=== PATIENT | female | born 1985 | race Caucasian/White ===

== ENCOUNTER 2016-12-31 13:15 | Emergency (ER) | payer BC ==
[2016-12-31] MEDS ORDERED: ONDANSETRON 4 MG TAB.RAPDIS PO ONE (13:44)
[2016-12-31] MEDS ORDERED: ACETAMINOPHEN 325 MG TABLET PO ONE (13:44)
[2016-12-31 14:16] LABS: ABSOLUTE EOSINOPHILS # (AUTO) 0.2 10^3/uL (0.0-0.6); ABSOLUTE LYMPHOCYTES (AUTO) 2.4 10^3/uL (0.5-4.7); ABSOLUTE MONOCYTES (AUTO) 0.9 10^3/uL (0.1-1.4); ABSOLUTE NEUT (AUTO) 6.4 10^3/uL (1.7-8.2); BASOPHILS % (AUTO) 0.3 % (0-2); EOSINOPHILS % (AUTO) 1.7 % (0-6); HEMATOCRIT 35.1 % (36.0-47.0); HEMOGLOBIN 11.7 g/dL (12.0-15.5); LYMPHOCYTES % (AUTO) 23.9 % (13-45); MEAN CORPUSCULAR HEMOGLOBIN 27.4 pg (27.0-33.4); MEAN CORPUSCULAR HGB CONC 33.4 g/dL (32.0-36.0); MEAN CORPUSCULAR VOLUME 82 fl (80-97); MONOCYTES % (AUTO) 9.3 % (3-13); RED BLOOD COUNT 4.28 10^6/uL (3.72-5.28); RED CELL DISTRIBUTION WIDTH 13.3 % (11.5-14.0); SEGMENTED NEUTROPHILS % (AUTO) 64.8 % (42-78); WHITE BLOOD COUNT 9.9 10^3/uL (4.0-10.5)
[2016-12-31 14:34] LABS: ANION GAP 11 (5-19); BLOOD UREA NITROGEN 12 mg/dL (7-20); CALCIUM 9.3 mg/dL (8.4-10.2); CARBON DIOXIDE 26 mmol/L (22-30); CHLORIDE 106 mmol/L (98-107); CREATININE RESULT 0.59 mg/dL (0.52-1.25); GLUCOSE 97 mg/dL (75-110); POTASSIUM 4.2 mmol/L (3.6-5.0); SODIUM 143.1 mmol/L (137-145)
[2016-12-31 14:46] LABS: APPEARANCE,URINE CLEAR; BILIRUBIN,URINE NEGATIVE (NEGATIVE); GLUCOSE, URINE NEGATIVE (NEGATIVE); KETONES,URINE NEGATIVE (NEGATIVE); LEUKOCYTE ESTERASE,URINE NEGATIVE (NEGATIVE); NITRITE,URINE NEGATIVE (NEGATIVE); PROTEIN,URINE NEGATIVE (NEGATIVE); URINE SPECIFIC GRAVITY 1.003; UROBILINOGEN,URINE NEGATIVE mg/dL (<2.0)
[2016-12-31 15:28] VITALS: BP 106/46
--- NOTE | 2016-12-31 15:29 | ER Document Report ---
ED General - General Chief Complaint: Flank Pain Stated Complaint: BACK PAIN TRAVEL OUTSIDE OF THE [place] IN LAST 30 DAYS: No - HPI Patient complains to provider of: bilateral flank pain back pain Notes: Patient coming in with a three-day history of bilateral flank pain back pain states he has a history kidney stones that she passed kidney stones recently. Patient denies fevers chills nausea vomiting. Upon my evaluation patient is in no obvious distress resting - Related Data Allergies/Adverse Reactions: colgate toothpaste Allergy (Uncoded 12/31/16 13:29) crest toothpaste Allergy (Uncoded 12/31/16 13:29) Past Medical History - Social History Smoking Status: Never Smoker Frequency of alcohol use: Occasional Drug Abuse: None Family History: Arthritis, CAD, CVA, Hyperlipidemia, Hypertension, Malignancy, Thyroid Disfunction Patient has suicidal ideation: No Patient has homicidal ideation: No - Past Medical History Cardiac Medical History: Reports: Hx Heart Murmur Pulmonary Medical History: Reports: Hx Bronchitis, Hx Pneumonia Renal/ Medical History: Denies: Hx Peritoneal Dialysis Musculoskeltal Medical History: Reports Hx Musculoskeletal Trauma Psychiatric Medical History: Reports: Hx Anxiety Traumatic Medical History: Reports: Hx Fractures - Left index finger Surgical Hx: Negative - Immunizations Hx Diphtheria, Pertussis, Tetanus Vaccination: Yes Review of Systems - Review of Systems Constitutional: No symptoms reported EENT: No symptoms reported Cardiovascular: No symptoms reported Respiratory: No symptoms reported Gastrointestinal: No symptoms reported Genitourinary: Flank pain - Bilateral flank pain Female Genitourinary: No symptoms reported Musculoskeletal: No symptoms reported Skin: No symptoms reported Hematologic/Lymphatic: No symptoms reported Neurological/Psychological: No symptoms reported Physical Exam - Vital signs Vitals: Temp Pulse Resp BP Pulse Ox 97.4 F 78 16 108/64 100 12/31/16 13:28 12/31/16 13:28 12/31/16 13:28 12/31/16 13:28 12/31/16 13:28 Interpretation: Normal - General General appearance: Appears well, Alert - HEENT Head: Normocephalic, Atraumatic Eyes: Normal Pupils: PERRL - Respiratory Respiratory status: No respiratory distress Chest status: Nontender Breath sounds: Normal Chest palpation: Normal - Cardiovascular Rhythm: Regular Heart sounds: Normal auscultation Murmur: No - Abdominal Inspection: Normal Distension: No distension Bowel sounds: Normal Tenderness: Nontender Organomegaly: No organomegaly - Back Back: Normal, Nontender - Extremities General upper extremity: Normal inspection, Nontender, Normal color, Normal ROM , Normal temperature General lower extremity: Normal inspection, Nontender, Normal color, Normal ROM , Normal temperature, Normal weight bearing. No: Christine's sign - Neurological Neuro grossly intact: Yes Cognition: Normal Orientation: AAOx4 [place] Coma Scale Eye Opening: Spontaneous [place] Coma Scale Verbal: Oriented [place] Coma Scale Motor: Obeys Commands [place] Coma Scale Total: 15 Speech: Normal Motor strength normal: LUE, RUE, LLE, RLE Sensory: Normal - Psychological Associated symptoms: Normal affect, Normal mood - Skin Skin Temperature: Warm Skin Moisture: Dry Skin Color: Normal Course - Re-evaluation Re-evalutation: 12/31/16 20:41 CAT scan lab reveal any kidney stones. Urinalysis not show any signs of infection patient is not . Review the CAT scan personally does shows some retained fecal material. Possible mild to moderate constipation. Patient will be given stool softener patient will be discharged home. - Vital Signs Vital signs: Temp Pulse Resp BP Pulse Ox 98.1 F 81 18 106/46 L 100 12/31/16 15:27 12/31/16 15:27 12/31/16 15:27 12/31/16 15:27 12/31/16 15:27 - Laboratory Result Diagrams: 12/31/16 13:45 12/31/16 13:45 Laboratory results interpreted by me: 12/31/16 13:45 Hgb 11.7 L Hct 35.1 L Discharge - Discharge Clinical Impression: Flank pain Condition: Good Disposition: HOME, SELF-CARE Instructions: Abdominal Pain ([facility]), Constipation ([facility]) Additional Instructions: Your lab work and your CT scan today shows no critical etiology no infections there is no signs of kidney stones on your CT scan. There is some signs of some mild to moderate constipation I would highly recommend taking a stool softener. He may take Tylenol and Motrin for pain. may also try to take Bentyl for pain. Return to the ER symptoms worsen. Prescriptions: Dicyclomine HCl [Bentyl 20 mg Tablet] 20 mg PO QID #20 tablet Docusate Sodium [Colace 100 mg Capsule] 100 mg PO DAILY #14 capsule Forms: Return to Work
== END 2016-12-31 15:31 | disposition home or self-care (01) ==
LOC: ER 13:15
DX: R10.9 Unspecified abdominal pain (principal); M54.9 Dorsalgia, unspecified
CPT/HCPCS: 99284; 36415; 84703; 85025; 80048; 81001; 76380; S0119

== ENCOUNTER 2017-03-07 21:59 | Emergency (ER) | payer BC ==
[2017-03-08] MEDS ORDERED: HYDROCODONE/ACETAMINOPHEN 5-325 MG 6 TAB/DSPK PO PRN (02:06)
[2017-03-08] MEDS ORDERED: METHYLPREDNISOLONE INJ 125 MG/2 ML SDV IM ONE (02:06)
--- NOTE | 2017-03-08 02:11 | ER Document Report ---
HPI - HPI Patient complains to provider of: left forearm pain Pain Level: Denies Context: Patient is a 32-year-old female with a history of lupus that comes emergency department for chief complaint of a tender area on her right forearm which hurts with movement and started developing this evening. There is a slight redness to the area. She states that she is on Plaquenil, she states her plaster die maker wants her to be on prednisone but she does not like the side effects. She denies fever, she denies specific injury, she denies any other symptoms. - CONSTITUTIONAL Constitutional: DENIES: Fever, Chills - EENT EENT: DENIES: Sore Throat, Ear Pain, Nasal Drainage-Clear, Nasal Drainage- Purulent, Congestion, Eye problems - NEURO Neurology: DENIES: Headache, Weakness, Vision blurred, Dizzinesss / Vertigo - CARDIOVASCULAR Cardiovascular: DENIES: Chest pain - RESPIRATORY Respiratory: DENIES: Trouble Breathing, Coughing - GASTROINTESTINAL Gastrointestinal: DENIES: Abdominal Pain, Nausea, Patient vomiting, Diarrhea, Constipation, Black / Bloody Stools - URINARY Urinary: DENIES: Dysuria, Urgency, Frequency - REPRODUCTIVE LMP: 03/06/17 Reproductive: DENIES: :, Postmenopausal - MUSCULOSKELETAL Musculoskeletal: REPORTS: Extremity pain. DENIES: Back Pain, Neck Pain, Swelling - DERM Skin Color: Normal, [place] Skin Problems: None - NURSING COMMENTS Comment: Pt presents with c/o a red line going up arm. Onset today. Has a raised red line from wrist going up toward elbow. C/O burning. Hx of Lupus. A/O , lying on stretcher. NAD. Past Medical History - General Information source: Patient - Social History Smoking Status: Never Smoker Drug Abuse: None Lives with: Family Family History: Arthritis, CAD, CVA, Hyperlipidemia, Hypertension, Malignancy, Thyroid Disfunction Patient has suicidal ideation: No Patient has homicidal ideation: No - Past Medical History Cardiac Medical History: Reports: Hx Heart Murmur Pulmonary Medical History: Reports: Hx Bronchitis, Hx Pneumonia Renal/ Medical History: Denies: Hx Peritoneal Dialysis Musculoskeltal Medical History: Reports Hx Musculoskeletal Trauma Psychiatric Medical History: Reports: Hx Anxiety Traumatic Medical History: Reports: Hx Fractures - Left index finger - Immunizations Hx Diphtheria, Pertussis, Tetanus Vaccination: Yes Vertical Provider Document - CONSTITUTIONAL General Appearance: WD/WN, No Apparent Distress - INFECTION CONTROL TRAVEL OUTSIDE OF THE [place] IN LAST 30 DAYS: No - HEENT HEENT: Atraumatic, Normocephalic - RESPIRATORY Respiratory: Breath Sounds Normal, No Respiratory Distress O2 Sat by Pulse Oximetry: 97 - CARDIOVASCULAR Cardiovascular: Regular Rate, Regular Rhythm - GI/ABDOMEN Gastrointestinal: Abdomen Soft, Abdomen Non-Tender - BACK Back: Normal Inspection - MUSCULOSKELETAL/EXTREMETIES Musculoskeletal/Extremeties: Tender - Patient has tenderness over the left wrist generally, there is a slightly inflamed appearing tendon of the distal forearm over the flexor surface, this is easily palpable and slightly tender, slightly erythematous, significantly warm to the touch. Normal strength, normal distal neurovascular exam, normal range of motion of the wrist, elbow, shoulder. Course - Re-evaluation Re-evalutation: There is specific pain and tenderness over the tendon of the left forearm. This is easily visualized because patient is very skinny. There is no abnormal heat to the area, there is no evidence of injury, bite, or other abnormality. No evidence of phlebitis or cellulitis. Appears to be inflamed connective tissue as opposed to infection. Patient will be given a dose of Solu-Medrol, placed on prednisone which she was already recommended to take by her plaster die maker, advised her to follow-up closely with her plaster die maker, instructed her to return if she has any spreading redness, fever, or any other concerning or worsening symptoms. Patient states satisfaction in agreement with this plan. - Vital Signs Vital signs: Temp Pulse Resp BP Pulse Ox 98.2 F 76 16 121/66 97 03/07/17 22:15 03/07/17 22:15 03/07/17 22:15 03/07/17 22:15 03/07/17 22:15 Procedures - Immobilization Left wrist Pre-Proc Neuro Vasc Exam: Normal Immobilizer type: Cock-up Performed by: RN Post-Proc Neuro Vasc Exam: Normal Alignment checked and good: Yes Discharge - Discharge Clinical Impression: Left forearm pain Condition: Stable Disposition: HOME, SELF-CARE Additional Instructions: Examination is consistent with musculoskeletal inflammation consistent with lupus flare. He has been given Solu-Medrol, I recommended prednisone taper over the prednisone dose prescribed by her plaster die maker. Rest, consider ice to the area, follow-up with your provider. Return to emergency department for any concerning or worsening symptoms including swelling, worsening redness, fever, or any other concerning symptoms. Prescriptions: Prednisone [Deltasone 10 mg Tablet] 10 mg PO ASDIR PRN #21 tablet PRN Reason: Forms: Return to Work, Treatment of Relative/Child Referrals: ADOLPH RDZ MD [Primary Care Provider] - Follow up as needed
[2017-03-08 02:39] VITALS: BP 122/77
== END 2017-03-08 02:39 | disposition home or self-care (01) ==
LOC: ER 21:59
DX: M79.632 Pain in left forearm (principal); R30.0 Dysuria
CPT/HCPCS: 99283; 96372; L3984; J2930

== ENCOUNTER 2017-06-12 20:26 | Emergency (ER) | payer BC ==
[2017-06-12] MEDS ORDERED: NORMAL SALINE 1000 ML 1,000 ML IV PRN (21:54)
[2017-06-12] MEDS ORDERED: ONDANSETRON HCL INJ/PF 4 MG/2 ML SDV IV ONE (21:54)
[2017-06-12 22:16] LABS: ABSOLUTE BASOPHILS # (AUTO) 0.1 10^3/uL (0.0-0.2); ABSOLUTE EOSINOPHILS # (AUTO) 0.1 10^3/uL (0.0-0.6); ABSOLUTE LYMPHOCYTES (AUTO) 3.5 10^3/uL (0.5-4.7); ABSOLUTE MONOCYTES (AUTO) 1.1 10^3/uL (0.1-1.4); ABSOLUTE NEUT (AUTO) 6.7 10^3/uL (1.7-8.2); BASOPHILS % (AUTO) 0.6 % (0-2); EOSINOPHILS % (AUTO) 1.1 % (0-6); HEMATOCRIT 38.2 % (36.0-47.0); HEMOGLOBIN 13.1 g/dL (12.0-15.5); HGB HCT DIFFERENCE 1.1; LYMPHOCYTES % (AUTO) 30.6 % (13-45); MEAN CORPUSCULAR HEMOGLOBIN 28.4 pg (27.0-33.4); MEAN CORPUSCULAR HGB CONC 34.3 g/dL (32.0-36.0); MEAN CORPUSCULAR VOLUME 83 fl (80-97); MONOCYTES % (AUTO) 9.6 % (3-13); RED BLOOD COUNT 4.62 10^6/uL (3.72-5.28); RED CELL DISTRIBUTION WIDTH 13.4 % (11.5-14.0); SEGMENTED NEUTROPHILS % (AUTO) 58.1 % (42-78); WHITE BLOOD COUNT 11.5 10^3/uL (4.0-10.5)
[2017-06-12] MEDS: MORPHINE SULFATE 10 MG/ML INJ IV PRN ×2 (22:17→23:32)
[2017-06-12 22:38] LABS: ALANINE AMINOTRANSFERASE 21 U/L (9-52); ALBUMIN 4.5 g/dL (3.5-5.0); ALKALINE PHOSPHATASE 65 U/L (38-126); ANION GAP 12 (5-19); ASPARTATE AMINO TRANSFERASE 27 U/L (14-36); BILIRUBIN,DIRECT 0.4 mg/dL (0.0-0.4); BILIRUBIN,TOTAL 0.5 mg/dL (0.2-1.3); BLOOD UREA NITROGEN 11 mg/dL (7-20); CALCIUM 10.1 mg/dL (8.4-10.2); CARBON DIOXIDE 23 mmol/L (22-30); CHLORIDE 105 mmol/L (98-107); CREATININE RESULT 0.58 mg/dL (0.52-1.25); GLUCOSE 87 mg/dL (75-110); LIPASE 149.8 U/L (23-300); SODIUM 140.1 mmol/L (137-145); TOTAL PROTEIN 7.6 g/dL (6.3-8.2)
--- NOTE | 2017-06-12 23:00 | ER Document Report ---
ED General - General Chief Complaint: Chest Pain Stated Complaint: CHEST PAIN AND SHORTNESS OF BREATH Time Seen by Provider: 06/12/17 21:42 Mode of Arrival: Ambulatory Information source: Patient Notes: This is a 32-year-old female with a history of lupus who presents to the emergency room with chest pain. Patient states the pain started yesterday and is gotten worse. Patient's only medicine is Plaquenil. She denies fever, chills, nausea or vomiting. It has hurt with positional changes and palpation. TRAVEL OUTSIDE OF THE [place] IN LAST 30 DAYS: No - HPI Onset: Last week Onset/Duration: Gradual Quality of pain: Dull Severity: Moderate Pain Level: Denies Associated symptoms: None. denies: Chest pain, Fever Exacerbated by: Denies Relieved by: Denies Similar symptoms previously: No Recently seen / treated by doctor: No - Related Data Allergies/Adverse Reactions: colgate toothpaste Allergy (Uncoded 06/12/17 21:43) crest toothpaste Allergy (Uncoded 06/12/17 21:43) Past Medical History - General Information source: Patient - Social History Smoking Status: Never Smoker Cigarette use (# per day): No Chew tobacco use (# tins/day): No Frequency of alcohol use: Occasional Drug Abuse: None Lives with: Family Family History: Arthritis, CAD, CVA, Hyperlipidemia, Hypertension, Malignancy, Thyroid Disfunction Patient has suicidal ideation: No Patient has homicidal ideation: No - Past Medical History Cardiac Medical History: Reports: Hx Heart Murmur Pulmonary Medical History: Reports: Hx Bronchitis, Hx Pneumonia Renal/ Medical History: Denies: Hx Peritoneal Dialysis Musculoskeltal Medical History: Reports Hx Musculoskeletal Trauma Psychiatric Medical History: Reports: Hx Anxiety Traumatic Medical History: Reports: Hx Fractures - Left index finger Surgical Hx: Negative - Immunizations Hx Diphtheria, Pertussis, Tetanus Vaccination: Yes Review of Systems - Review of Systems Constitutional: denies: Chills, Fever EENT: No symptoms reported Cardiovascular: No symptoms reported Respiratory: No symptoms reported Gastrointestinal: No symptoms reported Genitourinary: No symptoms reported Female Genitourinary: No symptoms reported Musculoskeletal: See HPI Skin: No symptoms reported Hematologic/Lymphatic: No symptoms reported Neurological/Psychological: No symptoms reported Physical Exam - Vital signs Vitals: Temp Pulse Resp BP Pulse Ox 97.6 F 86 18 109/67 99 09/18/17 21:05 06/12/17 21:05 06/12/17 21:05 06/12/17 21:05 06/12/17 21:05 Notes: Physical exam: GENERAL: 32-year-old female, alert and oriented 3, no acute distress. HEAD: Atraumatic, normocephalic. EYES: Pupils equal round and reactive to light, extraocular movements intact, sclera anicteric, conjunctiva are normal. ENT: TMs normal, nares patent, oropharynx clear without exudates. Moist mucous membranes. NECK: Normal range of motion, supple without obvious mass or JVD. LUNGS: Breath sounds clear to auscultation bilaterally and equal. No wheezes rales or rhonchi. HEART: Regular rate and rhythm without murmurs, rubs or gallops. ABDOMEN: Soft, normoactive bowel sounds. No tenderness to palpation. No guarding, no rebound. No masses appreciated. EXTREMITIES: Normal range of motion, no pitting or edema. No clubbing or cyanosis. NEUROLOGICAL: Cranial nerves II through XII grossly intact. Normal speech, moving all extremities. PSYCH: Normal mood, normal affect. SKIN: Warm, Dry, normal turgor, no rashes or lesions noted. Course - Vital Signs Vital signs: Temp Pulse Resp BP Pulse Ox 97.6 F 86 18 112/80 100 06/12/17 21:05 06/12/17 21:05 06/13/17 00:01 06/13/17 00:01 06/13/17 00:01 - Laboratory Result Diagrams: 06/12/17 22:00 06/12/17 22:00 Laboratory results interpreted by me: 06/12/17 22:00 WBC 11.5 H - Diagnostic Test Radiology reviewed: Image reviewed, Reports reviewed - CTA of the chest shows no pulmonary emboli - EKG Interpretation by Me Rate: Normal Rhythm: NSR - EKG shows normal sinus rhythm with a ventricular rate of 84, no acute ST-T wave changes. Discharge - Discharge Clinical Impression: Chest wall pain Condition: Stable Disposition: HOME, SELF-CARE Instructions: Chest Wall Pain ([facility]) Additional Instructions: Thank you for choosing [facility] for your care. The examination and treatment you have received in the Emergency Department today has been rendered on an emergency basis only and is not intended to be a substitute for complete medical care. You should contact your follow-up physician as it is important that he or she examine you for any new or remaining problems. If given a copy of any lab tests or radiology reports, please bring them with you when you see your physician. If your problem worsens or new symptoms appear and you are unable to arrange prompt follow-up care, return to the Emergency Department. Specific signs to look out for: Worsening pain, shortness of breath or any concerns or getting worse. Any other instructions: Follow up with your primary care physician in the next week. Bring a copy of today's lab work and CT report with you when you go to that appointment. Take Percocet for pain. Take the Zofran for nausea. The pain medicine you're taking prescribed as a narcotic. There are several important things you should know about this medicine: 1. This medicine contains Tylenol: It is important that you do not take Tylenol (or acetaminophen) while on this medicine. Tylenol is metabolized by the liver and taking too much Tylenol (acetaminophen) can lay to liver damage and even liver failure. 2. Taking narcotics for too long can lead to physical and mental dependence. Take this medicine only if really needed and in the lowest quantity to achieve pain relief. 3. Do not drink alcohol while on this medicine. Alcohol interacts with narcotics and the combination can be dangerous. 4. Do not drive or operate machinery while on this medicine. 5. Narcotics do cause constipation, so drink plenty of fluids and daily stool softeners. Prescriptions: Ondansetron HCl [Zofran 4 mg Tablet] 1 - 2 tab PO Q4H PRN #10 tablet PRN Reason: Oxycodone HCl/Acetaminophen [Percocet 5-325 mg Tablet] 1 - 2 tab PO ASDIR PRN # 15 tablet PRN Reason: Referrals: SHUBHAM KWOK MD [Primary Care Provider] - Follow up as needed
--- NOTE | 2017-06-12 23:39 | RADIOLOGY REPORT (SQ) ---
EXAM DESCRIPTION: CTA CHEST COMPLETED DATE/TIME: 06/12/2017 11:15 pm REASON FOR STUDY: chest pain COMPARISON: None. TECHNIQUE: CT scan of the chest performed using helical scanning technique with dynamic intravenous contrast injection. Images reviewed with lung, soft tissue and bone windows. Reconstructed coronal and sagittal MPR images reviewed. Additional 3 dimensional post-processing performed to develop Maximal Intensity Projection images (OR P). All images stored on PACS. All CT scanners at this facility use dose modulation, iterative reconstruction, and/or weight based d osing when appropriate to reduce radiation dose to as low as reasonably achievable (ALARA). [facility]: Dose Right [facility]: CareDose [facility]: Dose Right [facility]: Teradose 4D [facility]: Touch Payments CONTRAST TYPE AND DOSE: contrast/concentration: Isovue 370.00 mg/ml; Total Contrast Delivered: 100.0 ml; Total Saline Delivered: 45.0 ml Contrast bolus optimized for the pulmonary arteries. Not diagnostic for the aorta. RENAL FUNCTION: None required. The patient is less than 50 years old. RADIATION DOSE: Up-to-date CT equipment and radiation dose reduction techniques were employed. CTDIv ol: 13.2 - 14.3 mGy. DLP: 478 mGy-cm. . LIMITATIONS: None. FINDINGS: LUNGS AND PLEURA: No masses, infiltrates, pneumothorax. No pleural effusions, calcificati ons. AORTA AND GREAT VESSELS: No aneurysm. Contrast bolus not optimized for the aorta. HEART: No pericardial effusion. No significant coronary artery calcifications. PULMONARY ARTERIES: No emboli visualized in the main pulmonary arteries or the segmental branches. HILAR AND MEDIASTINAL STRUCTURES: No identified masses or abnormal nodes. HARDWARE: None in the chest. UPPER ABDOMEN: No significant findings. Limited exam. THYROID AND OTHER SOFT TISSUES: No masses. No adenopathy. BONES: No acute or significant finding. 3D MIPS: Confirm above findings. OTHER: No other significant finding. IMPRESSION: NORMAL CTA OF THE CHEST. NO PULMONARY EMBOLI. COMMENT: Quality ID # [id number]: Final reports with documentation of one or more dose reduction techniques (e.g., Automated exposure control, adjustment of the mA and/or kV according to patient size, use of iterative reconstruction technique) TECHNICAL DOCUMENTATION: JOB ID: [id number]- All Rights Reserved
[2017-06-13 00:15] LABS: CREATINE KINASE MB 0.34 ng/mL (<4.55)
[2017-06-13 00:16] LABS: TROPONIN I < 0.012 ng/mL
[2017-06-13] MEDS: MORPHINE SULFATE 10 MG/ML INJ IV PRN (01:05)
[2017-06-13] MEDS ORDERED: ONDANSETRON ODT 4 MG TAB (6 TAB/DSPK) PO PRN (01:40)
[2017-06-13 01:52] VITALS: BP 102/64
--- NOTE | 2017-06-13 07:56 | EKG REPORT ---
SEVERITY:- NORMAL ECG - SINUS RHYTHM : Confirmed by: Juan Van MD 13-Jun-2017 07:54:48
== END 2017-06-13 02:05 | disposition home or self-care (01) ==
LOC: ER 20:26
DX: R07.89 Other chest pain (principal); R06.02 Shortness of breath; Z79.899 Other long term (current) drug therapy; Z91.048 Other nonmedicinal substance allergy status
CPT/HCPCS: 93005; 96376; 99285; 96361; 96374; 96375; 36415; 82553; 82550; 83690; 85025; 80053; 84484; 71275; 93010; J2270 ×2; J2405; J7030

== ENCOUNTER 2017-07-24 16:11 | Emergency (ER) | payer BC ==
[2017-07-24 16:42] VITALS: BP 114/53
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
--- NOTE | 2017-07-24 17:29 | RADIOLOGY REPORT (SQ) ---
EXAM DESCRIPTION: FOOT LEFT COMPLETE COMPLETED DATE/TIME: 07/24/2017 5:18 pm REASON FOR STUDY: pain COMPARISON: None. NUMBER OF VIEWS: Three views. TECHNIQUE: AP, lateral and oblique radiographic images acquired of the left foot. LIMITATIONS: None. FINDINGS: MINERALIZATION: Normal. BONES: No acute fracture or dislocation. No worrisome bone lesions. JOINTS: No effusions. SOFT TISSUES: No soft tissue swelling. No foreign body. OTHER: No other significant finding. IMPRESSION: NEGATIVE STUDY OF THE LEFT FOOT. NO RADIOGRAPHIC EVIDENCE OF ACUTE INJURY. TECHNICAL DOCUMENTATION: JOB ID: [id number] [employer]- All Rights Reserved
[2017-07-24] MEDS ORDERED: NAPROXEN 250 MG TABLET PO ONE (17:42)
== END 2017-07-24 17:53 | disposition home or self-care (01) ==
LOC: ER 16:11
DX: S90.32XA Contusion of left foot, initial encounter (principal); M79.672 Pain in left foot; W20.8XXA Other cause of strike by thrown, projected or falling object, initial encounter
CPT/HCPCS: 99283

== ENCOUNTER 2017-10-22 20:40 | Emergency (ER) | payer BC ==
[2017-10-22] MEDS ORDERED: NORMAL SALINE 1000 ML 1,000 ML IV ONE (21:23)
[2017-10-22] MEDS ORDERED: ONDANSETRON HCL INJ/PF 4 MG/2 ML SDV IV ONE (21:23)
[2017-10-22] MEDS ORDERED: OXYCODONE-ACETAMINOPHEN 5-325 MG TABLET PO ONE (21:24)
--- NOTE | 2017-10-22 21:25 | ER Document Report ---
ED General - General Chief Complaint: Abdominal Pain Stated Complaint: ABDOMINAL PAIN, FLANK PAIN Time Seen by Provider: 10/22/17 21:04 Mode of Arrival: Ambulatory Information source: Patient Notes: Patient presents with 3 day history of epigastric tenderness. Patient states epigastric pain is worse after eating. Patient states she has had bilateral flank pain for the past 4 days. Patient does report nausea but denies any vomiting or diarrhea. Patient denies any fever or urinary symptoms. TRAVEL OUTSIDE OF THE [place] IN LAST 30 DAYS: No - HPI Onset: Just prior to arrival - 3 days Onset/Duration: Persistent Quality of pain: Achy Pain Level: 5 Associated symptoms: Nausea. 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 Lives with: Family Family History: Arthritis, CAD, CVA, Hyperlipidemia, Hypertension, Malignancy, Thyroid Disfunction Patient has suicidal ideation: No Patient has homicidal ideation: No - Medical History Medical History: Other - Lupus - Past Medical History Cardiac Medical History: Reports: Hx Heart Murmur Pulmonary Medical History: Reports: Hx Bronchitis, Hx Pneumonia Renal/ Medical History: Denies: Hx Peritoneal Dialysis Musculoskeltal Medical History: Reports Hx Musculoskeletal Trauma Psychiatric Medical History: Reports: Hx Anxiety, Hx Depression Traumatic Medical History: Reports: Hx Fractures - Left index finger Surgical Hx: Negative - Immunizations Hx Diphtheria, Pertussis, Tetanus Vaccination: Yes Review of Systems - Review of Systems Constitutional: No symptoms reported. denies: Fever, Recent illness EENT: No symptoms reported Cardiovascular: No symptoms reported. denies: Chest pain Respiratory: No symptoms reported. denies: Cough, Short of breath Gastrointestinal: Abdominal pain, Nausea. denies: Diarrhea, Vomiting Genitourinary: Flank pain. denies: Dysuria Female Genitourinary: No symptoms reported Musculoskeletal: Back pain Skin: No symptoms reported Hematologic/Lymphatic: No symptoms reported Neurological/Psychological: No symptoms reported Physical Exam - Vital signs Vitals: Temp Pulse Resp BP Pulse Ox 97.9 F 83 16 104/65 97 10/22/17 20:46 10/22/17 20:46 10/22/17 20:46 10/22/17 20:46 10/22/17 20:46 - General General appearance: Appears well, Alert In distress: None - HEENT Head: Normocephalic, Atraumatic Eyes: Normal Conjunctiva: Normal Nasal: Normal Mouth/Lips: Normal Mucous membranes: Normal Pharynx: Normal, Tonsillar hypertrophy. No: Erythema, Exudate, Peritonsillar abscess Neck: Normal, Supple. No: Lymphadenopathy - Respiratory Respiratory status: No respiratory distress Chest status: Nontender Breath sounds: Normal. No: Rales, Rhonchi, Stridor, Wheezing Chest palpation: Normal - Cardiovascular Rhythm: Regular Heart sounds: S1 appreciated, S2 appreciated Murmur: No - Abdominal Inspection: Normal Distension: No distension Bowel sounds: Normal Tenderness: Tender - epig Organomegaly: No organomegaly - Back Back: Tender - Patient with lumbar paraspinal tenderness, CVA tenderness - bilat - Extremities General upper extremity: Normal inspection, Normal strength General lower extremity: Normal inspection, Normal strength - Neurological Neuro grossly intact: Yes Cognition: Normal Meagan Coma Scale Eye Opening: Spontaneous Meagan Coma Scale Verbal: Oriented [place] Coma Scale Motor: Obeys Commands Meagan Coma Scale Total: 15 - Psychological Associated symptoms: Normal affect, Normal mood - Skin Skin Temperature: Warm Skin Moisture: Dry Skin Color: Normal Course - Re-evaluation Re-evalutation: 10/22/17 23:15 Patient states that epigastric tenderness is better although not completely resolved. Patient states that pain medicine helped her low back pain but it is starting to return. 10/22/17 23:53 Controlled substance database reviewed. Patient with bilateral flank tenderness , consistent with musculoskeletal back pain. No concern for UTI or pyelonephritis at this time. Patient with epigastric tenderness concerning for likely gastritis at this time. No concern for cholecystitis or choledocholithiasis. - Vital Signs Vital signs: Temp Pulse Resp BP Pulse Ox 98.2 F 73 18 119/73 99 10/22/17 23:52 10/22/17 23:52 10/22/17 23:52 10/22/17 23:52 10/22/17 23:52 - Laboratory Result Diagrams: 10/22/17 21:55 10/22/17 21:55 Laboratory results interpreted by me: 10/22/17 21:55 WBC 12.2 H Labs- Entire Visit 10/22/17 10/22/17 10/22/17 21:40 21:55 21:55 WBC 12.2 H RBC 4.70 Hgb 12.8 Hct 39.2 MCV 83 MCH 27.3 MCHC 32.8 RDW 13.6 Plt Count 283 Seg Neutrophils % 64.5 Lymphocytes % 23.6 Monocytes % 10.0 Eosinophils % 1.5 Basophils % 0.4 Absolute Neutrophils 7.9 Absolute Lymphocytes 2.9 Absolute Monocytes 1.2 Absolute Eosinophils 0.2 Absolute Basophils 0.0 Sodium 140.8 Potassium 3.8 Chloride 103 Carbon Dioxide 29 Anion Gap 9 BUN 11 Creatinine 0.59 Est GFR ( Amer) > 60 Est GFR (Non-Af Amer) > 60 Glucose 80 Calcium 9.9 Total Bilirubin 0.2 Direct Bilirubin 0.2 Neonat Total Bilirubin Not Reportable Neonat Direct Bilirubin Not Reportable Neonat Indirect Bili Not Reportable AST 26 ALT 16 Alkaline Phosphatase 64 Total Protein 7.5 Albumin 4.4 Lipase 139.0 Serum HCG, Qual Urine Color YELLOW Urine Appearance CLEAR Urine pH 6.0 Ur Specific [place] 1.005 Urine Protein NEGATIVE Urine Glucose (UA) NEGATIVE Urine Ketones NEGATIVE Urine Blood NEGATIVE Urine Nitrite NEGATIVE Urine Bilirubin NEGATIVE Urine Urobilinogen NEGATIVE Ur Leukocyte Esterase NEGATIVE Urine WBC (Auto) 1 Urine Bacteria (Auto) TRACE Squamous Epi Cells Auto 1 Urine Mucus (Auto) RARE Urine Ascorbic Acid NEGATIVE 10/22/17 21:55 WBC RBC Hgb Hct MCV MCH MCHC RDW Plt Count Seg Neutrophils % Lymphocytes % Monocytes % Eosinophils % Basophils % Absolute Neutrophils Absolute Lymphocytes Absolute Monocytes Absolute Eosinophils Absolute Basophils Sodium Potassium Chloride Carbon Dioxide Anion Gap BUN Creatinine Est GFR ( Amer) Est GFR (Non-Af Amer) Glucose Calcium Total Bilirubin Direct Bilirubin Neonat Total Bilirubin Neonat Direct Bilirubin Neonat Indirect Bili AST ALT Alkaline Phosphatase Total Protein Albumin Lipase Serum HCG, Qual NEGATIVE Urine Color Urine Appearance Urine pH Ur Specific [place] Urine Protein Urine Glucose (UA) Urine Ketones Urine Blood Urine Nitrite Urine Bilirubin Urine Urobilinogen Ur Leukocyte Esterase Urine WBC (Auto) Urine Bacteria (Auto) Squamous Epi Cells Auto Urine Mucus (Auto) Urine Ascorbic Acid - Diagnostic Test Radiology reviewed: Reports reviewed Discharge - Discharge Clinical Impression: Epigastric pain, Flank pain Condition: Stable Disposition: HOME, SELF-CARE Instructions: Abdominal Pain ([facility]), Flank Pain ([facility]) Additional Instructions: Return immediately for any new or worsening symptoms Followup with your primary care provider, call tomorrow to make a followup appointment Follow-up with a training facilitator for further evaluation, call Monday for an appointment. Prescriptions: Cyclobenzaprine HCl [Flexeril 10 Mg Tablet] 10 mg PO TID #15 tablet Omeprazole Magnesium [Prilosec Otc] 20 mg PO DAILY #15 tablet. Sucralfate [Carafate 1 gm Tablet] 1 gm PO ACHS #40 tablet Forms: Return to Work Referrals: SHUBHAM KWOK MD [Primary Care Provider] - Follow up tomorrow MAYELIN TREJO MD [ACTIVE STAFF] - Follow up as needed GOLDIE GARCIA MD [ACTIVE STAFF] - Follow up as needed
[2017-10-22 21:56] LABS: APPEARANCE,URINE CLEAR; BILIRUBIN,URINE NEGATIVE (NEGATIVE); COLOR,URINE YELLOW; GLUCOSE, URINE NEGATIVE (NEGATIVE); KETONES,URINE NEGATIVE (NEGATIVE); LEUKOCYTE ESTERASE,URINE NEGATIVE (NEGATIVE); NITRITE,URINE NEGATIVE (NEGATIVE); PROTEIN,URINE NEGATIVE (NEGATIVE); URINE SPECIFIC GRAVITY 1.005; UROBILINOGEN,URINE NEGATIVE mg/dL (<2.0)
--- NOTE | 2017-10-22 22:06 | RADIOLOGY REPORT (SQ) ---
EXAM DESCRIPTION: U/S ABDOMEN LIMITED W/O DOP COMPLETED DATE/TIME: 10/22/2017 9:56 pm REASON FOR STUDY: epig pain, upper back/flank pain COMPARISON: None. TECHNIQUE: Dynamic and static grayscale images acquired of the abdomen and recorded on PACS. Additio nal selected color Doppler and spectral images recorded. LIMITATIONS: None. FINDINGS: PANCREAS: No masses. Visualized pancreatic duct normal caliber. LIVER: No masses. Echotexture normal. LIVER VASCULATURE: Normal directional flow of the main portal vein and hepatic veins. GALLBLADDER: Decompressed. No stones. Normal wall thickness. No pericholecystic fluid. ULTRASOUND-DETECTED STAHL'S SIGN: Negative. INTRAHEPATIC DUCTS AND COMMON DUCT: CBD and intrahepatic ducts normal caliber. No filling defects. INFERIOR VENA CAVA: Normal flow. AORTA: No aneurysm. RIGHT KIDNEY: Normal size. Normal echogenicity. No solid or suspicious masses. No hydronephrosis. No calcifications. PERITONEAL AND RIGHT PLEURAL SPACE: No ascites or effusions. OTHER: No other significant findings. IMPRESSION: Decompressed gallbladder. No stones. TECHNICAL DOCUMENTATION: JOB ID: [id number] [place]-72 2010 [employer]- All Rights Reserved
[2017-10-22 22:20] LABS: ABSOLUTE EOSINOPHILS # (AUTO) 0.2 10^3/uL (0.0-0.6); ABSOLUTE LYMPHOCYTES (AUTO) 2.9 10^3/uL (0.5-4.7); ABSOLUTE MONOCYTES (AUTO) 1.2 10^3/uL (0.1-1.4); ABSOLUTE NEUT (AUTO) 7.9 10^3/uL (1.7-8.2); BASOPHILS % (AUTO) 0.4 % (0-2); EOSINOPHILS % (AUTO) 1.5 % (0-6); HEMATOCRIT 39.2 % (36.0-47.0); HEMOGLOBIN 12.8 g/dL (12.0-15.5); LYMPHOCYTES % (AUTO) 23.6 % (13-45); MEAN CORPUSCULAR HEMOGLOBIN 27.3 pg (27.0-33.4); MEAN CORPUSCULAR HGB CONC 32.8 g/dL (32.0-36.0); MEAN CORPUSCULAR VOLUME 83 fl (80-97); PLATELET COUNT 283 10^3/uL (150-450); RED CELL DISTRIBUTION WIDTH 13.6 % (11.5-14.0); SEGMENTED NEUTROPHILS % (AUTO) 64.5 % (42-78); TOTAL CELLS COUNTED % (AUTO) 100 %; WHITE BLOOD COUNT 12.2 10^3/uL (4.0-10.5)
[2017-10-22 22:24] LABS: ALANINE AMINOTRANSFERASE 16 U/L (9-52); ALBUMIN 4.4 g/dL (3.5-5.0); ALKALINE PHOSPHATASE 64 U/L (38-126); ANION GAP 9 (5-19); ASPARTATE AMINO TRANSFERASE 26 U/L (14-36); BILIRUBIN,DIRECT 0.2 mg/dL (0.0-0.4); BILIRUBIN,TOTAL 0.2 mg/dL (0.2-1.3); BLOOD UREA NITROGEN 11 mg/dL (7-20); CALCIUM 9.9 mg/dL (8.4-10.2); CARBON DIOXIDE 29 mmol/L (22-30); CHLORIDE 103 mmol/L (98-107); GLUCOSE 80 mg/dL (75-110); POTASSIUM 3.8 mmol/L (3.6-5.0); SODIUM 140.8 mmol/L (137-145); TOTAL PROTEIN 7.5 g/dL (6.3-8.2)
[2017-10-22] MEDS ORDERED: MAG HYDROX/AL HYDROX/SIMETH SUSP 30 ML UDCUP PO ONE (23:34)
[2017-10-22] MEDS ORDERED: LIDOCAINE 2% VISCOUS SOLN 20 ML UDCUP PO ONE (23:34)
[2017-10-22 23:53] VITALS: BP 119/73
[2017-10-22] MEDS ORDERED: HYDROCODONE/ACETAMINOPHEN 5-325 MG (6 TAB/ER DISP) PO PRN (23:55)
== END 2017-10-23 00:15 | disposition home or self-care (01) ==
LOC: ER 20:40
DX: R10.13 Epigastric pain (principal); R11.0 Nausea
CPT/HCPCS: 99284; 36415; 83690; 84703; 85025; 80053; 81001; 76705; J3490; J2405; J7030

== ENCOUNTER 2017-11-15 20:02 | Emergency (ER) | payer BC ==
[2017-11-15] MEDS ORDERED: NORMAL SALINE 1000 ML 2,000 ML IV ONE (22:26)
[2017-11-15] MEDS ORDERED: ONDANSETRON 4 MG TAB.RAPDIS PO ONE (22:26)
--- NOTE | 2017-11-15 22:29 | ER Document Report ---
ED Medical Screen (RME) - General Chief Complaint: Nausea/Vomiting Stated Complaint: VOMITING Time Seen by Provider: 11/15/17 22:26 Mode of Arrival: Ambulatory Information source: Patient Notes: 32 yo female with nausea and vomiting, without diarrhea today. Woke up with it. vomited more than 12 times. NO fever or chills. Generalized abd. pain but most epigastric, which started after the vomiting. No abd. surgeries. LMP 3 weeks ago , denies . Pale and looks dry. Occasional ETOH, none recently. TRAVEL OUTSIDE OF THE [place] IN LAST 30 DAYS: No - Related Data Allergies/Adverse Reactions: colgate toothpaste Allergy (Uncoded 10/22/17 20:40) crest toothpaste Allergy (Uncoded 10/22/17 20:40) Past Medical History - Past Medical History Cardiac Medical History: Reports: Hx Heart Murmur Pulmonary Medical History: Reports: Hx Bronchitis, Hx Pneumonia Renal/ Medical History: Denies: Hx Peritoneal Dialysis Musculoskeltal Medical History: Reports Hx Musculoskeletal Trauma Psychiatric Medical History: Reports: Hx Anxiety, Hx Depression Traumatic Medical History: Reports: Hx Fractures - Left index finger - Immunizations Hx Diphtheria, Pertussis, Tetanus Vaccination: Yes Physical Exam - Vital signs Vitals: Temp Pulse Resp BP Pulse Ox 97.3 F 110 H 20 131/76 H 100 11/15/17 20:31 11/15/17 20:31 11/15/17 20:31 11/15/17 20:31 11/15/17 20:31 Course - Vital Signs Vital signs: Temp Pulse Resp BP Pulse Ox 97.3 F 110 H 20 131/76 H 100 11/15/17 20:31 11/15/17 20:31 11/15/17 20:31 11/15/17 20:31 11/15/17 20:31
[2017-11-15 23:21] LABS: ABSOLUTE BASOPHILS # (AUTO) 0.1 10^3/uL (0.0-0.2); ABSOLUTE LYMPHOCYTES (AUTO) 1.4 10^3/uL (0.5-4.7); ABSOLUTE NEUT (AUTO) 15.8 10^3/uL (1.7-8.2); BASOPHILS % (AUTO) 0.3 % (0-2); HEMATOCRIT 38.9 % (36.0-47.0); HEMOGLOBIN 12.9 g/dL (12.0-15.5); LYMPHOCYTES % (AUTO) 7.7 % (13-45); MEAN CORPUSCULAR HEMOGLOBIN 27.3 pg (27.0-33.4); MEAN CORPUSCULAR HGB CONC 33.1 g/dL (32.0-36.0); MEAN CORPUSCULAR VOLUME 82 fl (80-97); MONOCYTES % (AUTO) 5.5 % (3-13); PLATELET COUNT 390 10^3/uL (150-450); RED BLOOD COUNT 4.72 10^6/uL (3.72-5.28); SEGMENTED NEUTROPHILS % (AUTO) 86.5 % (42-78); TOTAL CELLS COUNTED % (AUTO) 100 %; WHITE BLOOD COUNT 18.3 10^3/uL (4.0-10.5)
[2017-11-15 23:39] LABS: ALANINE AMINOTRANSFERASE 24 U/L (9-52); ALBUMIN 4.9 g/dL (3.5-5.0); ALKALINE PHOSPHATASE 94 U/L (38-126); ANION GAP 16 (5-19); ASPARTATE AMINO TRANSFERASE 30 U/L (14-36); BILIRUBIN,DIRECT 0.1 mg/dL (0.0-0.4); BILIRUBIN,TOTAL 0.6 mg/dL (0.2-1.3); BLOOD UREA NITROGEN 18 mg/dL (7-20); CALCIUM 10.2 mg/dL (8.4-10.2); CARBON DIOXIDE 24 mmol/L (22-30); CHLORIDE 103 mmol/L (98-107); GLUCOSE 88 mg/dL (75-110); LIPASE 60.7 U/L (23-300); POTASSIUM 4.2 mmol/L (3.6-5.0); SODIUM 143.4 mmol/L (137-145)
[2017-11-16 00:08] LABS: APPEARANCE,URINE SLIGHTLY-CLOUDY; BILIRUBIN,URINE NEGATIVE (NEGATIVE); COLOR,URINE YELLOW; GLUCOSE, URINE NEGATIVE (NEGATIVE); KETONES,URINE 20 mg/dL (NEGATIVE); LEUKOCYTE ESTERASE,URINE NEGATIVE (NEGATIVE); NITRITE,URINE NEGATIVE (NEGATIVE); PROTEIN,URINE 100 mg/dL (NEGATIVE); URINE SPECIFIC GRAVITY 1.025; UROBILINOGEN,URINE NEGATIVE mg/dL (<2.0)
[2017-11-16] MEDS ORDERED: METOCLOPRAMIDE HCL INJ/PF 10 MG/2 ML SDV IV ONE (01:17)
[2017-11-16] MEDS ORDERED: ONDANSETRON ODT 4 MG TAB (6 TAB/ER DISP) PO PRN (02:04)
--- NOTE | 2017-11-16 02:04 | ER Document Report ---
ED GI/ - General Mode of Arrival: Ambulatory Information source: Patient TRAVEL OUTSIDE OF THE [place] IN LAST 30 DAYS: No <SAE FRANCO - Last Filed: 11/16/17 05:08> <RAMYA GARG - Last Filed: 11/16/17 05:25> - General Chief Complaint: Nausea/Vomiting Stated Complaint: VOMITING Time Seen by Provider: 11/15/17 22:26 Notes: Patient is a 32-year-old female that presents to the emergency department today with complaints of abdominal pain with associated nausea and vomiting. Patient was seen here on 10/22/2017 for the same complaint, at that time the patient had a negative gallbladder ultrasound. Patient never followed up since this visit. Patient states at that time her pain was there all the time however it was exacerbated with food. Patient states she has not eaten today. Patient states her abdominal pain is somewhat diffuse but worse on the right side. Patient states she was given "pink pills" during her 10/22 visit which did help her pain. Patient denies any abdominal surgeries. Patient states her nausea is much better after getting medication in triage however her abdominal pain still remains. (SAE FRANCO) - Related Data Allergies/Adverse Reactions: colgate toothpaste Allergy (Uncoded 10/22/17 20:40) crest toothpaste Allergy (Uncoded 10/22/17 20:40) Past Medical History - General Information source: Patient - Social History Smoking Status: Unknown if Ever Smoked Cigarette use (# per day): No Frequency of alcohol use: None Drug Abuse: None Lives with: Family Family History: Arthritis, CAD, CVA, Hyperlipidemia, Hypertension, Malignancy, Thyroid Disfunction Patient has suicidal ideation: No Patient has homicidal ideation: No - Past Medical History Cardiac Medical History: Reports: Hx Heart Murmur Pulmonary Medical History: Reports: Hx Bronchitis, Hx Pneumonia Musculoskeltal Medical History: Reports Hx Musculoskeletal Trauma Psychiatric Medical History: Reports: Hx Anxiety, Hx Depression Traumatic Medical History: Reports: Hx Fractures - Left index finger Surgical Hx: Negative - Immunizations Hx Diphtheria, Pertussis, Tetanus Vaccination: Yes <SAE FRANCO - Last Filed: 11/16/17 05:08> Review of Systems - Review of Systems Constitutional: No symptoms reported EENT: No symptoms reported Cardiovascular: No symptoms reported Respiratory: No symptoms reported Gastrointestinal: See HPI, Abdominal pain, Nausea, Vomiting Genitourinary: No symptoms reported Female Genitourinary: No symptoms reported Musculoskeletal: No symptoms reported Skin: No symptoms reported Hematologic/Lymphatic: No symptoms reported Neurological/Psychological: No symptoms reported -: Yes All other systems reviewed and negative <SAE FRANCO - Last Filed: 11/16/17 05:08> Physical Exam <SAE FRANCO - Last Filed: 11/16/17 05:08> <RAMYA GARG - Last Filed: 11/16/17 05:25> - Vital signs Vitals: Temp Pulse Resp BP Pulse Ox 97.3 F 110 H 20 131/76 H 100 11/15/17 20:31 11/15/17 20:31 11/15/17 20:31 11/15/17 20:31 11/15/17 20:31 - Notes Notes: Physical Exam: General: Alert, appears uncomfortable. HEENT: Normocephalic. Atraumatic. PERRL. Extraocular movements intact. Oropharynx clear. Dry mucous membranes. Neck: Supple. Non-tender. Respiratory: No respiratory distress. Clear and equal breath sounds bilaterally. Cardiovascular: Regular rate and rhythm. Abdominal: Epigastric tenderness with palpation, no guarding or rebound. No distension. Normal Bowel Sounds. Back: Non-tender. No deformity or step off. Extremities: Moves all four extremities. Upper extremities: Normal inspection. Normal ROM. Lower extremities: Normal inspection. No edema. Normal ROM. Neurological: Normal cognition. AAOx4. Normal speech. Psychological: Normal affect. Normal Mood. Skin: Warm. Dry. Normal color. (SAE FRANCO) Course - Laboratory Result Diagrams: 11/15/17 22:50 11/15/17 22:50 <SAE FRANCO - Last Filed: 11/16/17 05:08> - Laboratory Result Diagrams: 11/15/17 22:50 11/15/17 22:50 <RAMYA GARG - Last Filed: 11/16/17 05:25> - Re-evaluation Re-evalutation: 11/16/17 03:05 Patient reports pain and nausea completely resolved. Ready to be discharged. (SAE FRANCO) Patient is a 32-year-old female who comes in with nausea and vomiting. Patient also with epigastric pain. Patient was seen for something similar a few weeks ago. She is not sure what she was discharged with. 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 Patient has had complete resolution with pain after GI cocktail. Abdomen is soft and nontender. Blood work is consistent with dehydration. Patient is to follow-up with her primary doctor and gastroenterology. Return if any worsening or concerning symptoms. She will be discharged home with omeprazole and Carafate. She is to obtain ranitidine or famotidine [id number]. Understands and agrees with plan. Avoid greasy and spicy foods. Return if any further concerns. Stable for discharge. ( RAMYA GARG) - Vital Signs Vital signs: Temp Pulse Resp BP Pulse Ox 98.3 F 90 20 135/75 H 100 11/16/17 03:15 11/16/17 03:15 11/16/17 03:15 11/16/17 03:15 11/16/17 03:15 - Laboratory Laboratory results interpreted by me: 11/15/17 11/15/17 22:50 23:20 WBC 18.3 H Seg Neutrophils % 86.5 H Lymphocytes % 7.7 L Absolute Neutrophils 15.8 H Urine Protein 100 H Urine Ketones 20 H Discharge <SAE FRANCO - Last Filed: 11/16/17 05:08> <RAMYA GARG - Last Filed: 11/16/17 05:25> - Discharge Clinical Impression: Dehydration Vomiting Qualifiers: Vomiting type: unspecified Vomiting Intractability: unspecified Nausea presence : with nausea Qualified Code(s): R11.2 - Nausea with vomiting, unspecified Condition: Stable Disposition: HOME, SELF-CARE Instructions: Dehydration ([facility]), Vomiting ([facility]) Prescriptions: Metoclopramide HCl [Reglan 10 mg Tablet] 1 tab PO TIDP PRN #25 tablet PRN Reason: Omeprazole 20 mg PO DAILY #30 capsule. Sucralfate [Carafate 1 gm Tablet] 1 gm PO ACHS #120 tablet Forms: Return to Work Referrals: SHELDON JOHNSON NP [Primary Care Provider] - Follow up in 3-5 days MAYELIN TREJO MD [ACTIVE STAFF] - Follow up in 1 week Scribe Attestation: 11/16/17 05:25 I personally performed the services described in the documentation, reviewed and edited the documentation which was dictated to the scribe in my presence, and it accurately records my words and actions. (RAMYA GARG) Scribe Documentation - Scribe Written by Scribe:: Niko Boss, 11/16/2017 [id number] acting as scribe for :: Yaima <SAE FRANCO - Last Filed: 11/16/17 05:08>
[2017-11-16] MEDS ORDERED: MAG HYDROX/AL HYDROX/SIMETH SUSP 30 ML UDCUP PO ONE (02:19)
[2017-11-16] MEDS ORDERED: SUCRALFATE 1 GM TABLET PO ONE (02:19)
[2017-11-16] MEDS ORDERED: FAMOTIDINE 20 MG TABLET PO ONE (02:19)
[2017-11-16 03:17] VITALS: BP 135/75
== END 2017-11-16 03:11 | disposition home or self-care (01) ==
LOC: ER 20:02
DX: R11.2 Nausea with vomiting, unspecified (principal); E86.0 Dehydration; R10.84 Generalized abdominal pain; R10.816 Epigastric abdominal tenderness; Z91.048 Other nonmedicinal substance allergy status
CPT/HCPCS: 99283; 96361; 96374; 36415; 87086; 83690; 84703; 85025; 80053; 81001; S0119; J2765; J7030

== ENCOUNTER → 2017-12-14 | Outpatient (CLI) | payer BC ==
--- NOTE | 2017-12-14 15:36 | RADIOLOGY REPORT (SQ) ---
EXAM DESCRIPTION: NM HIDA SCAN WITH CCK COMPLETED DATE/TIME: 12/14/2017 2:37 pm REASON FOR STUDY: N/V (R11.2) R11.2 NAUSEA WITH VOMITING, UNSPECIFIED COMPARISON: None. RADIONUCLIDE AND DOSE: DOSAGE RADIONUCLIDE: 5.7 millicuries Tc99m Mebrofenin. DOSAGE CCK: 0.9 micrograms. DOSAGE MORPHINE: Not required. The route of agent administration: Intravenous TECHNIQUE: Serial imaging right upper quadrant up to 60 minutes following injection of radionuclide. CCK injected after gallbladder visualized. LIMITATIONS: None. FINDINGS: LIVER: Normal visualization without areas of photopenia. INTRAHEPATIC BILE DUCTS: Normal size and no delay in visualization. COMMON BILE DUCT: Normal without dilatation. GALLBLADDER: Normal visualization. Calculated ejection fraction of 87%. Normal range is greater th an 35%. PHYSICAL RESPONSE: Patients presenting complaint was reproduced. OTHER: No other significant finding. IMPRESSION: Normal HIDA. Normal ejection fraction. Patient was symptomatic. TECHNICAL DOCUMENTATION: JOB ID: [id number] [employer]- All Rights Reserved Reading location - IP/workstation name: [email or web address]
== END ==
LOC: RAD 12:21
PROVIDERS: ATTEND Internal Medicine Gastroenterology
DX: R11.2 Nausea with vomiting, unspecified (principal)
CPT/HCPCS: 78227; J2805; A9537; Q9969

== ENCOUNTER 2017-12-18 08:48 | Day surgery (SDC) | payer BC ==
[~2017-12-18 08:48] MED LIST: PROPOFOL INJ 200 MG/20 ML VIAL IV ONE
[2017-12-18 11:15] VITALS: BP 104/63
--- NOTE | 2017-12-18 13:19 | Operative Report ---
Operative Report DATE OF SURGERY: 12/18/17 Operative Report: The risks benefits and alternatives of the procedure explained to the patient in detail and informed consent is obtained.A GIF Olympus video scope was inserted into the patient's mouth and hypopharynx, the esophagus is identified intubated and insufflated, the scope was then advanced through the esophagus stomach and duodenum, retroflexion maneuver is done, the esophagus stomach and first and second portions of the duodenum examined PREOPERATIVE DIAGNOSIS: Epigastric pain POSTOPERATIVE DIAGNOSIS: Gastritis status post biopsy rule out Helicobacter pylori OPERATION: EGD with biopsy SURGEON: SHEMAR RODRIGUEZ ANESTHESIA: LMAC TISSUE REMOVED OR ALTERED: Gastritis status post biopsy rule out Helicobacter pylori COMPLICATIONS: None. ESTIMATED BLOOD LOSS: None. INTRAOPERATIVE FINDINGS: As noted above. PROCEDURE: Patient tolerated procedure well. No immediate postprocedure complications are noted. Patient discharged in good condition. Discharge date 12/18/2017. Discharge diet: Regular. Discharge activity: Regular. 2-3 week follow-up to discuss findings. Patient is instructed call the office or proceed to the emergency room should there be any further problems or questions. We will wait on pathology.
== END 2017-12-18 11:15 | disposition home or self-care (01) ==
LOC: END 08:48
PROVIDERS: ATTEND Internal Medicine Gastroenterology
DX: K29.70 Gastritis, unspecified, without bleeding (principal); K21.9 Gastro-esophageal reflux disease without esophagitis; R01.1 Cardiac murmur, unspecified; Z79.899 Other long term (current) drug therapy; Z87.891 Personal history of nicotine dependence
CPT/HCPCS: 43239; 731; J2704

== ENCOUNTER → 2018-01-25 | Outpatient (CLI) | payer BC ==
[2018-01-25 14:25] LABS: HEMATOCRIT 37.1 % (36.0-47.0); HEMOGLOBIN 12.5 g/dL (12.0-15.5); MEAN CORPUSCULAR HEMOGLOBIN 27.3 pg (27.0-33.4); MEAN CORPUSCULAR HGB CONC 33.6 g/dL (32.0-36.0); MEAN CORPUSCULAR VOLUME 81 fl (80-97); PLATELET COUNT 250 10^3/uL (150-450); RED BLOOD COUNT 4.56 10^6/uL (3.72-5.28); RED CELL DISTRIBUTION WIDTH 13.5 % (11.5-14.0); WHITE BLOOD COUNT 8.3 10^3/uL (4.0-10.5)
[2018-01-25 14:44] LABS: ANION GAP 7 (5-19); BLOOD UREA NITROGEN 12 mg/dL (7-20); CALCIUM 9.4 mg/dL (8.4-10.2); CARBON DIOXIDE 28 mmol/L (22-30); CHLORIDE 107 mmol/L (98-107); GLUCOSE 85 mg/dL (75-110); POTASSIUM 4.3 mmol/L (3.6-5.0)
== END ==
LOC: LAB 14:03
PROVIDERS: ATTEND Surgery
DX: Z01.89 Encounter for other specified special examinations (principal)
CPT/HCPCS: 36415; 80048; 85027

== ENCOUNTER 2018-06-02 22:41 | Emergency (ER) | payer BC ==
[2018-06-02 23:58] LABS: ABSOLUTE BASOPHILS # (AUTO) 0.1 10^3/uL (0.0-0.2); ABSOLUTE EOSINOPHILS # (AUTO) 0.2 10^3/uL (0.0-0.6); ABSOLUTE LYMPHOCYTES (AUTO) 3.6 10^3/uL (0.5-4.7); ABSOLUTE MONOCYTES (AUTO) 1.2 10^3/uL (0.1-1.4); ABSOLUTE NEUT (AUTO) 5.3 10^3/uL (1.7-8.2); BASOPHILS % (AUTO) 0.5 % (0-2); EOSINOPHILS % (AUTO) 1.5 % (0-6); HEMOGLOBIN 12.6 g/dL (12.0-15.5); LYMPHOCYTES % (AUTO) 34.5 % (13-45); MEAN CORPUSCULAR HEMOGLOBIN 28.3 pg (27.0-33.4); MEAN CORPUSCULAR HGB CONC 34.1 g/dL (32.0-36.0); MEAN CORPUSCULAR VOLUME 83 fl (80-97); MONOCYTES % (AUTO) 11.8 % (3-13); PLATELET COUNT 234 10^3/uL (150-450); RED BLOOD COUNT 4.46 10^6/uL (3.72-5.28); SEGMENTED NEUTROPHILS % (AUTO) 51.7 % (42-78); TOTAL CELLS COUNTED % (AUTO) 100 %; WHITE BLOOD COUNT 10.3 10^3/uL (4.0-10.5)
--- NOTE | 2018-06-03 00:38 | RADIOLOGY REPORT (SQ) ---
EXAM DESCRIPTION: CLINICAL HISTORY: 33 years Female chest pain COMPLETED DATE/TME: 06/02/2018 23:37 COMPARISON: 01/10/2018 FINDINGS: The cardiomediastinal silhouette appears unremarkable. No consolidating infiltrates or pleural effusions. No pneumothorax. IMPRESSION: No acute abnormality is identified.
[2018-06-03 00:43] LABS: ALANINE AMINOTRANSFERASE 19 U/L (9-52); ALKALINE PHOSPHATASE 50 U/L (38-126); ANION GAP 7 (5-19); ASPARTATE AMINO TRANSFERASE 23 U/L (14-36); BILIRUBIN,DIRECT 0.2 mg/dL (0.0-0.4); BILIRUBIN,TOTAL 0.3 mg/dL (0.2-1.3); BLOOD UREA NITROGEN 15 mg/dL (7-20); CALCIUM 9.3 mg/dL (8.4-10.2); CARBON DIOXIDE 25 mmol/L (22-30); CHLORIDE 108 mmol/L (98-107); GLUCOSE 83 mg/dL (75-110); LIPASE 200.7 U/L (23-300); SODIUM 140.2 mmol/L (137-145); TOTAL PROTEIN 7.1 g/dL (6.3-8.2)
[2018-06-03] MEDS ORDERED: KETOROLAC TROMETHAMINE INJ/PF 30 MG/1 ML SDV IV ONE (00:54)
--- NOTE | 2018-06-03 00:58 | ER Document Report ---
ED General - General Chief Complaint: Chest Pain Stated Complaint: CHEST PAIN Time Seen by Provider: 06/02/18 23:36 Mode of Arrival: Ambulatory Information source: Patient Notes: Patient is a 33-year-old female with history of lupus who presents with chief complaint of chest pain. Patient reports she has a sharp stabbing pain in the left side of her chest and a pressure-like feeling in the middle of her chest. Patient denies any radiation of this pain. Patient reports associated nausea without vomiting. Patient reports the pain is worse when she takes a deep breath. Patient has no cardiac history, does not smoke, is not on any control and has not had any recent travel. TRAVEL OUTSIDE OF THE [place] IN LAST 30 DAYS: No - Related Data Allergies/Adverse Reactions: colgate toothpaste Allergy (Severe, Uncoded 12/18/17 09:03) crest toothpaste Allergy (Severe, Uncoded 12/18/17 09:03) FORMS HOLES IN TONGUE AND MOUTH Past Medical History - General Information source: Patient - Social History Smoking Status: Never Smoker Chew tobacco use (# tins/day): No Frequency of alcohol use: Occasional Drug Abuse: None Family History: Arthritis, CAD, CVA, Hyperlipidemia, Hypertension, Malignancy, Thyroid Disfunction Patient has suicidal ideation: No Patient has homicidal ideation: No - Past Medical History Cardiac Medical History: Reports: Hx Heart Murmur Denies: Hx Coronary Artery Disease, Hx Heart Attack, Hx Hypertension Pulmonary Medical History: Reports: Hx Bronchitis, Hx Pneumonia Denies: Hx Asthma, Hx COPD Neurological Medical History: Denies: Hx Cerebrovascular Accident, Hx Seizures Renal/ Medical History: Denies: Hx Peritoneal Dialysis Musculoskeletal Medical History: Denies Hx Arthritis, Reports Hx Musculoskeletal Trauma Psychiatric Medical History: Reports: Hx Anxiety, Hx Depression Traumatic Medical History: Reports: Hx Fractures - Left index finger Past Surgical History: Reports: Hx Cholecystectomy - Immunizations Hx Diphtheria, Pertussis, Tetanus Vaccination: Yes Review of Systems - Review of Systems Constitutional: No symptoms reported EENT: No symptoms reported Cardiovascular: See HPI Respiratory: See HPI Gastrointestinal: No symptoms reported Genitourinary: No symptoms reported Female Genitourinary: No symptoms reported Musculoskeletal: No symptoms reported Skin: No symptoms reported Hematologic/Lymphatic: No symptoms reported Neurological/Psychological: No symptoms reported Physical Exam - Vital signs Vitals: Temp Pulse Resp BP Pulse Ox 97.7 F 79 16 104/66 99 06/02/18 22:52 06/02/18 22:52 06/02/18 22:52 06/02/18 22:52 06/02/18 22:52 - Notes Notes: PHYSICAL EXAMINATION: GENERAL: Well-appearing, well-nourished and in no acute distress. HEAD: Atraumatic, normocephalic. EYES: Pupils equal round and reactive to light, extraocular movements intact, conjunctiva are normal. ENT: Nares patent, oropharynx clear without exudates. Moist mucous membranes. NECK: Normal range of motion, supple without lymphadenopathy LUNGS: Breath sounds clear to auscultation bilaterally and equal. No wheezes rales or rhonchi. HEART: Regular rate and rhythm without murmurs ABDOMEN: Soft, nontender, nondistended abdomen. No guarding, no rebound. No masses appreciated. Female : deferred Musculoskeletal: Normal range of motion, no pitting or edema. No cyanosis. NEUROLOGICAL: Cranial nerves grossly intact. Normal speech, normal gait. Normal sensory, motor exams PSYCH: Normal mood, normal affect. SKIN: Warm, Dry, normal turgor, no rashes or lesions noted. Course - Re-evaluation Re-evalutation: CBC, CMP and troponin are negative. Chest x-ray is unremarkable. Patient reports improvement of her chest pain after administration of Toradol and GI cocktail. Patient's heart score is 0, PERC negative. Patient will be discharged home in stable condition. - Vital Signs Vital signs: Temp Pulse Resp BP Pulse Ox 98.6 F 79 14 97/49 L 99 06/03/18 00:37 06/02/18 22:52 06/03/18 00:37 06/03/18 00:37 06/02/18 22:52 - Laboratory Result Diagrams: 06/02/18 23:45 06/02/18 23:45 Laboratory results interpreted by me: 06/02/18 23:45 Chloride 108 H Discharge - Discharge Clinical Impression: Chest pain Qualifiers: Chest pain type: unspecified Qualified Code(s): R07.9 - Chest pain, unspecified Condition: Stable Disposition: HOME, SELF-CARE Additional Instructions: You were seen today for chest pain. The exact cause of your pain is unclear. However, based on your cardiac enzyme testing, chest x-ray, and EKG it does not appear that it is from an immediately life-threatening cause at this time. Please return to emergency department immediately if you have worsening of your chest pain, shortness of breath, vomiting, become unable to exert yourself due to pain or difficulty breathing, you pass out, or have any pain that radiates into your arms, jaw, or back. Please also return if you have any additional symptoms that are concerning to you. Prescriptions: Ondansetron [Zofran Odt 4 mg Tablet] 1 - 2 tab PO Q4H PRN #15 tab.rapdis PRN Reason: For Nausea/Vomiting Forms: Return to Work Referrals: FEDE ANZARIO MD [NO LOCAL MD] - Follow up as needed
[2018-06-03] MEDS ORDERED: KETOROLAC TROMETHAMINE 60 MG/2 ML SDV IM ONE (01:13)
[2018-06-03] MEDS ORDERED: MAG HYDROX/AL HYDROX/SIMETH SUSP 30 ML UDCUP PO ONE (01:46)
[2018-06-03] MEDS ORDERED: LIDOCAINE 2% VISCOUS SOLN 20 ML UDCUP PO ONE (01:46)
[2018-06-03] MEDS ORDERED: METOCLOPRAMIDE HCL ORAL SOLN 10 MG/10 ML UDCUP PO ONE (01:47)
[2018-06-03] MEDS ORDERED: ONDANSETRON ODT 4 MG TAB (6 TAB/ER DISP) PO PRN (02:34)
[2018-06-03 03:24] VITALS: BP 100/60
--- NOTE | 2018-06-03 08:31 | EKG REPORT ---
SEVERITY:- ABNORMAL ECG - NSR 79 BORDERLINE T ABNORMALITIES, ANT-LAT LEADS : Confirmed by: Juan Van MD 03-Jun-2018 08:31:04
== END 2018-06-03 03:15 | disposition home or self-care (01) ==
LOC: ER 22:41
DX: R07.89 Other chest pain (principal); R11.0 Nausea; Z91.048 Other nonmedicinal substance allergy status; Z82.49 Family history of ischemic heart disease and other diseases of the circulatory system
CPT/HCPCS: 93005; 99285; 96372; 36415; 83690; 85025; 80053; 84484; 71046; 93010; J1885; J3490

== ENCOUNTER 2018-09-13 09:50 | Emergency (ER) | payer BC ==
--- NOTE | 2018-09-13 10:14 | ER Document Report ---
ED Medical Screen (RME) - General Chief Complaint: Abdominal Pain Stated Complaint: ABDOMINAL PAIN Time Seen by Provider: 09/13/18 10:05 Notes: 33-year-old female patient LMP 08/12/2018 reports 5-day history of right pelvic pain which got acutely worse this morning. There is pain with walking and hitting bumps riding in the car. She also reports nausea vomiting diarrhea. She does not know if she is . I have greeted and performed a rapid initial assessment of this patient. A comprehensive ED assessment and evaluation of the patient, analysis of test results and completion of the medical decision making process will be conducted by additional ED providers. TRAVEL OUTSIDE OF THE [place] IN LAST 30 DAYS: No - Related Data Allergies/Adverse Reactions: colgate toothpaste Allergy (Severe, Uncoded 12/18/17 09:03) crest toothpaste Allergy (Severe, Uncoded 12/18/17 09:03) FORMS HOLES IN TONGUE AND MOUTH Past Medical History - Social History Frequency of alcohol use: Occasional Drug Abuse: None - Past Medical History Cardiac Medical History: Reports: Hx Heart Murmur Denies: Hx Coronary Artery Disease, Hx Heart Attack, Hx Hypertension Pulmonary Medical History: Reports: Hx Bronchitis, Hx Pneumonia Denies: Hx Asthma, Hx COPD Neurological Medical History: Denies: Hx Cerebrovascular Accident, Hx Seizures Renal/ Medical History: Denies: Hx Peritoneal Dialysis Musculoskeltal Medical History: Denies Hx Arthritis, Reports Hx Musculoskeletal Trauma Psychiatric Medical History: Reports: Hx Anxiety, Hx Depression Traumatic Medical History: Reports: Hx Fractures - Left index finger Past Surgical History: Reports: Hx Cholecystectomy - Immunizations Hx Diphtheria, Pertussis, Tetanus Vaccination: Yes Physical Exam - Vital signs Vitals: Temp Pulse Resp BP Pulse Ox 97.7 F 20 L 20 107/40 L 98 09/13/18 09:55 09/13/18 09:55 09/13/18 09:55 09/13/18 09:55 09/13/18 09:55 Course - Vital Signs Vital signs: Temp Pulse Resp BP Pulse Ox 97.7 F 20 L 20 107/40 L 98 09/13/18 09:55 09/13/18 09:55 09/13/18 09:55 09/13/18 09:55 09/13/18 09:55
--- NOTE | 2018-09-13 10:44 | ER Document Report ---
ED General - General Chief Complaint: Abdominal Pain Stated Complaint: ABDOMINAL PAIN Time Seen by Provider: 09/13/18 10:05 TRAVEL OUTSIDE OF THE [place] IN LAST 30 DAYS: No - HPI Notes: Patient is a 33-year-old female with a history of lupus who presents to the ED complaining of right lower pelvic pain over the last 5 days, but worsened today. Patient states that the pain does not radiate. Pressure and bumps make the pain worse. She has not found anything that improves her pain. Patient states that her last menstrual period was on August 12 and states that there is a chance of . She is still able to eat and drink without any difficulties. She is urinating normally and having normal bowel movements. She has not noticed any vaginal discharge, odor, or bleeding. Patient states that she has no concern of STD or STI does not want testing at this time. No other concerns or complaints. Pt states that she had diarrhea the first 2 days, but nothing since then. Denies any headache, fever, URI, sore throat, chest pain, palpitations, syncope, cough, shortness of breath, wheeze, dyspnea, vomiting/diarrhea, urinary retention, dysuria, hematuria, loss of control of bowel or bladder, numbness/tingling, saddle anesthesia, muscle paralysis/weakness, or rash. - Related Data Allergies/Adverse Reactions: colgate toothpaste Allergy (Severe, Uncoded 12/18/17 09:03) crest toothpaste Allergy (Severe, Uncoded 12/18/17 09:03) FORMS HOLES IN TONGUE AND MOUTH Past Medical History - Social History Smoking Status: Former Smoker Frequency of alcohol use: Occasional Drug Abuse: None Family History: Arthritis, CAD, CVA, Hyperlipidemia, Hypertension, Malignancy, Thyroid Disfunction Patient has suicidal ideation: No Patient has homicidal ideation: No - Past Medical History Cardiac Medical History: Reports: Hx Heart Murmur Denies: Hx Coronary Artery Disease, Hx Heart Attack, Hx Hypertension Pulmonary Medical History: Reports: Hx Bronchitis, Hx Pneumonia Denies: Hx Asthma, Hx COPD Neurological Medical History: Denies: Hx Cerebrovascular Accident, Hx Seizures Renal/ Medical History: Denies: Hx Peritoneal Dialysis Musculoskeletal Medical History: Denies Hx Arthritis, Reports Hx Musculoskeletal Trauma Psychiatric Medical History: Reports: Hx Anxiety, Hx Depression Traumatic Medical History: Reports: Hx Fractures - Left index finger Past Surgical History: Reports: Hx Cholecystectomy - Immunizations Hx Diphtheria, Pertussis, Tetanus Vaccination: Yes Review of Systems - Review of Systems -: Yes All other systems reviewed and negative Physical Exam - Vital signs Vitals: Temp Pulse Resp BP Pulse Ox 97.7 F 20 L 20 107/40 L 98 09/13/18 09:55 09/13/18 09:55 09/13/18 09:55 09/13/18 09:55 09/13/18 09:55 - Notes Notes: PHYSICAL EXAMINATION: GENERAL: Well-appearing, well-nourished and in no acute distress. A&Ox4. Answers questions appropriately. HEAD: Atraumatic, normocephalic. EYES: Pupils equal round and reactive to light, extraocular movements intact, sclera anicteric, conjunctiva are normal. ENT: Nares patent and without discharge. oropharynx clear without exudates. No tonsilar hypertrophy or erythema. Moist mucous membranes. NECK: Normal range of motion, supple without lymphadenopathy LUNGS: Breath sounds clear to auscultation bilaterally and equal. No wheezes rales or rhonchi. HEART: Regular rate and rhythm without murmurs, rubs, gallops. ABDOMEN: Soft, nondistended abdomen. No guarding, no rebound. No masses appreciated. Normal bowel sounds present. No CVA tenderness bilaterally. + tenderness rt lower pelvic. Barnett neg. When palpating near McBur[place], pt feels the pain in the rt lower pelvic area. : pt declined. Musculoskeletal: FROM to passive/active. Strength 5+/5. Extremities: No cyanosis, clubbing, or edema b/l. Peripheral pulses 2+. Capillary refill less than 3 seconds. NEUROLOGICAL: Normal speech, normal gait. Normal sensory, motor exams PSYCH: Normal mood, normal affect. SKIN: Warm, Dry, normal turgor, no rashes or lesions noted. Course - Re-evaluation Re-evalutation: 09/13/18 11:48 Patient is an afebrile, well-hydrated, 33-year-old female who presents to the ED with Rt pelvic pain, suspect secondary to ovarian cyst, possible rupture of another. Vitals are acceptable without any significant tachycardia, tachypnea, or hypoxia. PE is otherwise unremarkable. CBC, CMP, Urinalysis, and hCG are unremarkable for any acute pathology. Pt declined pelvic exam/STD testing. See TVUS report. Patient is nontoxic-appearing is tolerating p.o. without any difficulties. No other labs or imaging warranted at this time based on H&P. Pt has no tenderness at McBurney point. Her tenderness is lower pelvic at this time. I did review appendicitis observation. Pt's sx's have been ongoing for 5 days. Low suspicion/risk for acute appendicitis, bowel obstruction, acute cholecystitis, acute cholangitis, perforated diverticulitis, incarcerated hernia, pancreatitis, perforated ulcer, peritonitis, sepsis, pelvic inflammatory disease, ectopic , tubo-ovarian abscess, ovarian torsion, or other systemic emergent condition at this time. Patient is aware that her condition can change from initial presentation and she needs to monitor symptoms closely and seek medical attention if any acute changes. I will send her home with prescription for naproxen. Conservative measures otherwise for symptoms. Recheck with your PCM/OBGYN in 3-5 days. Return to the ED with any worsening/concerning symptoms otherwise as reviewed in discharge. Patient is in agreement. - Vital Signs Vital signs: Temp Pulse Resp BP Pulse Ox 97.7 F 20 L 20 107/40 L 98 09/13/18 09:55 09/13/18 09:55 09/13/18 09:55 09/13/18 09:55 09/13/18 09:55 - Laboratory Result Diagrams: 09/13/18 10:30 09/13/18 10:30 Discharge - Discharge Clinical Impression: Pelvic pain Ovarian cyst Qualifiers: Laterality: bilateral Qualified Code(s): N83.201 - Unspecified ovarian cyst, right side; N83.202 - Unspecified ovarian cyst, left side Condition: Stable Disposition: HOME, SELF-CARE Instructions: Observation for Appendicitis ([facility]), Ovarian Cyst ([facility]), Pelvic Pain ([facility]) Additional Instructions: Maintain fluid intake Proper hygienic technique Keep the skin clean Tylenol/ibuprofen as needed F/u with your PCM/OBGYN in 3-5 days for a recheck Return to the ED with any development of VICTOR/fever, trouble with vision, eye redness, worsening pain, urethral discharge, urinary retention, blood in the urine, flank pain, abdominal pain, n/v, Chest Pain, shortness of breath, joint pains, trouble breathing, or any other worsening/concerning symptoms as needed otherwise. Prescriptions: Naproxen 500 mg PO BID #14 tablet Referrals: ADOLPH SOFIA MD [Primary Care Provider] - Follow up as needed [facility] [Provider Group] - Follow up in 3-5 days
[2018-09-13 10:46] LABS: APPEARANCE,URINE CLEAR; BILIRUBIN,URINE NEGATIVE (NEGATIVE); COLOR,URINE STRAW; GLUCOSE, URINE NEGATIVE (NEGATIVE); KETONES,URINE NEGATIVE (NEGATIVE); LEUKOCYTE ESTERASE,URINE NEGATIVE (NEGATIVE); NITRITE,URINE NEGATIVE (NEGATIVE); PROTEIN,URINE NEGATIVE (NEGATIVE); URINE SPECIFIC GRAVITY 1.008; UROBILINOGEN,URINE NEGATIVE mg/dL (<2.0)
[2018-09-13 10:48] LABS: ABSOLUTE EOSINOPHILS # (AUTO) 0.1 10^3/uL (0.0-0.6); ABSOLUTE MONOCYTES (AUTO) 0.9 10^3/uL (0.1-1.4); ABSOLUTE NEUT (AUTO) 4.3 10^3/uL (1.7-8.2); BASOPHILS % (AUTO) 0.4 % (0-2); EOSINOPHILS % (AUTO) 1.9 % (0-6); HEMATOCRIT 37.7 % (36.0-47.0); HEMOGLOBIN 12.8 g/dL (12.0-15.5); LYMPHOCYTES % (AUTO) 27.4 % (13-45); MEAN CORPUSCULAR HEMOGLOBIN 28.5 pg (27.0-33.4); MEAN CORPUSCULAR HGB CONC 34.1 g/dL (32.0-36.0); MEAN CORPUSCULAR VOLUME 84 fl (80-97); MONOCYTES % (AUTO) 11.5 % (3-13); PLATELET COUNT 253 10^3/uL (150-450); RED BLOOD COUNT 4.51 10^6/uL (3.72-5.28); RED CELL DISTRIBUTION WIDTH 12.7 % (11.5-14.0); SEGMENTED NEUTROPHILS % (AUTO) 58.8 % (42-78); TOTAL CELLS COUNTED % (AUTO) 100 %; WHITE BLOOD COUNT 7.4 10^3/uL (4.0-10.5)
[2018-09-13 11:03] LABS: ALANINE AMINOTRANSFERASE 22 U/L (9-52); ALBUMIN 4.1 g/dL (3.5-5.0); ALKALINE PHOSPHATASE 50 U/L (38-126); ANION GAP 7 (5-19); ASPARTATE AMINO TRANSFERASE 33 U/L (14-36); BILIRUBIN,DIRECT 0.1 mg/dL (0.0-0.4); BILIRUBIN,TOTAL 0.5 mg/dL (0.2-1.3); BLOOD UREA NITROGEN 12 mg/dL (7-20); CALCIUM 9.5 mg/dL (8.4-10.2); CARBON DIOXIDE 27 mmol/L (22-30); CHLORIDE 106 mmol/L (98-107); GLUCOSE 79 mg/dL (75-110); SODIUM 140.4 mmol/L (137-145)
--- NOTE | 2018-09-13 11:39 | RADIOLOGY REPORT (SQ) ---
EXAM DESCRIPTION: U/S NON OB PEL TV W/DOPPLER COMPLETED DATE/TIME: 09/13/2018 11:28 am REASON FOR STUDY: LMP 08/12/18 RLQ pain x 5 days, worse today COMPARISON: 12/12/2015 TECHNIQUE: Dynamic and static grayscale images acquired of the pelvis via transvaginal approach and recorded on PACS. Additional selected color Doppler and spectral images recorded. LIMITATIONS: None. FINDINGS: UTERUS: Contour normal. No mass. ENDOMETRIAL STRIPE: No focal or generalized thickening. No masses. CERVIX: A nabothian cyst is present. Cervix measures 1.8 cm. RIGHT OVARY AND DOPPLER: Normal size. No worrisome masses. There is a cyst measuring 1.9 x 1.4 x 0.7 cm. Normal arterial vascular flow without evidence for torsion. LEFT OVARY AND DOPPLER: Normal size. No worrisome masses. 2 cysts are noted. These each measure 2.5 cm in largest diameter. Normal arterial vascular flow without evidence for torsion. FREE FLUID: Moderate amount of free fluid in the posterior cul-de-sac. OTHER: No other significant finding. MEASUREMENTS: UTERUS: 7 x 4.1 x 2.8 cm. ENDOMETRIAL STRIPE: 9 mm. RIGHT OVARY: 3.7 x 2.6 x 1.8 cm. LEFT OVARY: 5.7 x 2.5 x 2.8 cm. IMPRESSION: Small ovarian cysts are present. Almost certainly benign. No additional follow-up is n eeded for these. There is some free fluid in the posterior cul-de-sac. TECHNICAL DOCUMENTATION: JOB ID: [id number] [employer]- All Rights Reserved Rev Reading location - IP/workstation name: [email or web address]
[2018-09-13] MEDS ORDERED: KETOROLAC TROMETHAMINE INJ/PF 30 MG/1 ML SDV IM ONE (11:47)
[2018-09-13 12:00] VITALS: BP 110/55
== END 2018-09-13 12:00 | disposition home or self-care (01) ==
LOC: ER 09:50
DX: N83.201 Unspecified ovarian cyst, right side (principal); N83.202 Unspecified ovarian cyst, left side; R10.31 Right lower quadrant pain; R10.2 Pelvic and perineal pain
CPT/HCPCS: 99284; 96372; 36415; 85025; 81025; 80053; 81001; 76830; 93976; J1885

== ENCOUNTER 2019-06-21 19:14 | Emergency (ER) | payer SELFPAY ==
--- NOTE | 2019-06-21 20:15 | ER Document Report ---
ED Medical Screen (RME) - General Chief Complaint: Groin Pain Stated Complaint: GROIN PAIN Time Seen by Provider: 06/21/19 20:06 Primary Care Provider: ADOLPH SOFIA MD [Primary Care Provider] - Follow up as needed Notes: Patient is a 34-year-old female presents emergency department with a chief complaint of a "lump" to her right groin. She noticed the lump yesterday. Denies any fever, body aches, chills, dysuria, vaginal discharge, or any other symptoms. Denies any pain. Exam: Normal groin exam I have greeted and performed a rapid initial assessment of this patient. A comprehensive ED assessment and evaluation of the patient, analysis of test results and completion of medical decision making process will be conducted by an additional ED providers. TRAVEL OUTSIDE OF THE [place] IN LAST 30 DAYS: No - Related Data Allergies/Adverse Reactions: colgate toothpaste Allergy (Severe, Uncoded 12/18/17 09:03) crest toothpaste Allergy (Severe, Uncoded 12/18/17 09:03) FORMS HOLES IN TONGUE AND MOUTH Past Medical History - Past Medical History Cardiac Medical History: Reports: Hx Heart Murmur Denies: Hx Coronary Artery Disease, Hx Heart Attack, Hx Hypertension Pulmonary Medical History: Reports: Hx Bronchitis, Hx Pneumonia Denies: Hx Asthma, Hx COPD Neurological Medical History: Denies: Hx Cerebrovascular Accident, Hx Seizures Renal/ Medical History: Denies: Hx Peritoneal Dialysis Musculoskeltal Medical History: Denies Hx Arthritis, Reports Hx Musculoskeletal Trauma Psychiatric Medical History: Reports: Hx Anxiety, Hx Depression Traumatic Medical History: Reports: Hx Fractures - Left index finger Past Surgical History: Reports: Hx Cholecystectomy - Immunizations Hx Diphtheria, Pertussis, Tetanus Vaccination: Yes Doctor's Discharge - Discharge Referrals: ADOLPH SOFIA MD [Primary Care Provider] - Follow up as needed
--- NOTE | 2019-06-21 21:08 | RADIOLOGY REPORT (SQ) ---
EXAM DESCRIPTION: U/S ABDOMEN LTD W/DOPPLER CLINICAL HISTORY: 34 years Female, lower abdominal lump COMPARISON: None FINDINGS: Limited sonographic evaluation of the right groin was performed with grayscale and Doppler. There is a 2 x 0.9 x 1.2 cm lymph node with fatty hilum. Vascular flow is noted. There are no fluid collections. IMPRESSION: Reactive right inguinal lymph node. No abscess.
--- NOTE | 2019-06-21 22:02 | ER Document Report ---
ED General - General Chief Complaint: Pelvic Pain Stated Complaint: GROIN PAIN Time Seen by Provider: 06/21/19 20:06 Primary Care Provider: IRMA LAL PA [Primary Care Provider] - Follow up in 1 week Notes: Patient is a 34-year-old female presents emergency department with a chief complaint of a "lump" to her right groin. She noticed the lump yesterday. Denies any fever, body aches, chills, dysuria, vaginal discharge, or any other symptoms. Denies any pain. Patient has a past medical history of lupus. She is currently on Imuran, Plaquenil, aspirin, and medications she states is similar to Prozac, but cannot remember what it is. TRAVEL OUTSIDE OF THE [place] IN LAST 30 DAYS: No - Related Data Allergies/Adverse Reactions: colgate toothpaste Allergy (Severe, Uncoded 12/18/17 09:03) crest toothpaste Allergy (Severe, Uncoded 12/18/17 09:03) FORMS HOLES IN TONGUE AND MOUTH Past Medical History - Social History Smoking Status: Never Smoker Frequency of alcohol use: Rare Drug Abuse: None Family History: Arthritis, CAD, CVA, Hyperlipidemia, Hypertension, Malignancy, Thyroid Disfunction Patient has suicidal ideation: No Patient has homicidal ideation: No - Past Medical History Cardiac Medical History: Reports: Hx Heart Murmur Denies: Hx Coronary Artery Disease, Hx Heart Attack, Hx Hypertension Pulmonary Medical History: Reports: Hx Bronchitis, Hx Pneumonia Denies: Hx Asthma, Hx COPD Neurological Medical History: Denies: Hx Cerebrovascular Accident, Hx Seizures Renal/ Medical History: Denies: Hx Peritoneal Dialysis Musculoskeletal Medical History: Denies Hx Arthritis, Reports Hx Musculoskeletal Trauma Psychiatric Medical History: Reports: Hx Anxiety, Hx Depression Traumatic Medical History: Reports: Hx Fractures - Left index finger Past Surgical History: Reports: Hx Cholecystectomy - Immunizations Hx Diphtheria, Pertussis, Tetanus Vaccination: Yes Review of Systems - Review of Systems Notes: REVIEW OF SYSTEMS: CONSTITUTIONAL : Denies recent illness. Denies recent unintentional weight loss. Denies fever, chills, or sweats. EENT: Denies eye, ear, throat, or mouth pain, discharge, or symptoms. Denies nasal or sinus congestion. CARDIOVASCULAR: Denies chest pain. RESPIRATORY: Denies shortness of breath, cough, congestion, difficulty breathing, or wheezing. GASTROINTESTINAL: Denies nausea, vomiting, and diarrhea. Denies abdominal pain. Denies constipation. GENITOURINARY: Denies difficulty urinating, burning, blood in urine, urgency or frequency. MUSCULOSKELETAL: Denies neck and back pain. Denies joint pain or swelling. SKIN: Denies rash, itchiness, or lesions HEMATOLOGIC : Denies easy bruising or bleeding. LYMPHATIC: Denies swollen, painful, enlarged glands. NEUROLOGICAL: Denies no numbness or tingling denies weakness. Denies headache. Denies altered mental status. Denies alteration in speech. PSYCHIATRIC: Denies stress, anxiety, alteration in sleep patterns, or depression. PELVIC: See HPI. All other systems reviewed and negative. Physical Exam - Vital signs Vitals: Temp Pulse Resp BP 98.2 F 81 18 109/52 L 06/21/19 21:30 06/21/19 21:30 06/21/19 21:30 06/21/19 21:30 - Notes Notes: PHYSICAL EXAMINATION: GENERAL: Appears well, healthy, well-nourished, no acute distress. HEAD: Normocephalic, atraumatic. EYES: PERRL, conjunctiva normal, all extraocular movements intact, sclera nonicteric ENT: Moist mucous membranes. NECK: Supple, no noticeable swelling, redness, rash. Normal range of motion. LUNGS: Equal breath sounds bilaterally and clear to auscultation. No wheezes rales or rhonchi. CARDIOVASCULAR: S1-S2, regular rate, regular rhythm. Radial pulses 2+, normal. ABDOMEN: Normoactive bowel sounds. Soft, nontender, no guarding, no rebound tenderness, and no masses palpated. EXTREMITIES: Normal strength and range of motion, no pitting or edema. No cyanosis. NEUROLOGICAL: Moves all extremities upon command. Strength 5/5 in all extremities. PSYCH: Normal mood, normal affect. SKIN: Warm, dry. No rash, lesions, ulcerations noted. Normal skin turgor. Groin: Enlarged lymph node to right groin. Course - Re-evaluation Re-evalutation: Ultrasound ordered by myself in triage shows that the patient has an enlarged lymph node. There is no abscess noted. 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 I have a very low suspicion for sepsis or any life-threatening etiology at this time. Patient is in agreement to follow-up with her water reuse program manager outpatient. Follow-up precautions were given. Verbal discharge instructions were given to the patient. They verbalized understanding. They are stable for discharge. - Vital Signs Vital signs: Temp Pulse Resp BP Pulse Ox 98.2 F 81 18 109/52 L 06/21/19 21:30 06/21/19 21:30 06/21/19 21:30 06/21/19 21:30 Discharge - Discharge Clinical Impression: Lymph nodes enlarged Condition: Stable Disposition: HOME, SELF-CARE Additional Instructions: You were seen today in the emergency department for a "lump" in your right groin. This is a lymph node. Lymph nodes can enlarge when there is a localized infection. Usually they will go away on their own over time. Please follow-up with your primary care provider in regards to this visit. Referrals: IRMA LAL PA [Primary Care Provider] - Follow up in 1 week
[2019-06-21 22:15] VITALS: BP 109/52
== END 2019-06-21 22:22 | disposition home or self-care (01) ==
LOC: ER 19:14
DX: R59.1 Generalized enlarged lymph nodes (principal); R10.2 Pelvic and perineal pain; Z90.49 Acquired absence of other specified parts of digestive tract
CPT/HCPCS: 76705; 93976; 99283

== ENCOUNTER 2019-12-15 01:46 | Emergency (ER) | payer SELFPAY ==
[2019-12-15 02:31] LABS: ABSOLUTE EOSINOPHILS # (AUTO) 0.1 10^3/uL (0.0-0.6); ABSOLUTE LYMPHOCYTES (AUTO) 2.2 10^3/uL (0.5-4.7); ABSOLUTE MONOCYTES (AUTO) 0.8 10^3/uL (0.1-1.4); ABSOLUTE NEUT (AUTO) 4.2 10^3/uL (1.7-8.2); BASOPHILS % (AUTO) 0.5 % (0-2); EOSINOPHILS % (AUTO) 1.9 % (0-6); LYMPHOCYTES % (AUTO) 30.2 % (13-45); MEAN CORPUSCULAR HEMOGLOBIN 32.3 pg (27.0-33.4); MEAN CORPUSCULAR HGB CONC 34.2 g/dL (32.0-36.0); MEAN CORPUSCULAR VOLUME 94 fl (80-97); PLATELET COUNT 273 10^3/uL (150-450); RED BLOOD COUNT 4.03 10^6/uL (3.72-5.28); RED CELL DISTRIBUTION WIDTH 13.8 % (11.5-14.0); SEGMENTED NEUTROPHILS % (AUTO) 56.4 % (42-78); TOTAL CELLS COUNTED % (AUTO) 100 %; WHITE BLOOD COUNT 7.4 10^3/uL (4.0-10.5)
[2019-12-15 03:00] LABS: ALBUMIN 4.3 g/dL (3.5-5.0); ALKALINE PHOSPHATASE 52 U/L (38-126); ANION GAP 6 (5-19); ASPARTATE AMINO TRANSFERASE 26 U/L (14-36); BILIRUBIN,TOTAL 0.4 mg/dL (0.2-1.3); BLOOD UREA NITROGEN 15 mg/dL (7-20); CALCIUM 9.5 mg/dL (8.4-10.2); CARBON DIOXIDE 28 mmol/L (22-30); CHLORIDE 104 mmol/L (98-107); GLUCOSE 80 mg/dL (75-110); POTASSIUM 4.5 mmol/L (3.6-5.0); TOTAL PROTEIN 7.6 g/dL (6.3-8.2)
[2019-12-15] MEDS ORDERED: NORMAL SALINE 1000 ML 1,000 ML IV ONE (04:15)
[2019-12-15] MEDS ORDERED: METHYLPREDNISOLONE INJ 125 MG/2 ML SDV IV ONE (04:16)
[2019-12-15] MEDS ORDERED: KETOROLAC TROMETHAMINE INJ/PF 30 MG/1 ML SDV IV ONE (04:16)
--- NOTE | 2019-12-15 04:40 | ER Document Report ---
Entered by CHEY CERON SCRIBE 12/15/19 0425 Acting as scribe for:FAITH RHOADES IV, MD ED General - General Chief Complaint: Headache Stated Complaint: HEADACHE Time Seen by Provider: 12/15/19 04:06 Primary Care Provider: IRMA LAL PA [Primary Care Provider] - Follow up as needed Mode of Arrival: Ambulatory Information source: Patient Notes: This 34 year old female patient presents to the ED today with complaints of left-sided head pain that started yesterday morning. Patient describes the pain as "a jolt of electricity" followed by a burning sensation that is constant. Patient states that the pain "takes me out...makes me drop if I'm standing." Patient also reports "floaties" in her eyes, left-sided facial numbness, and se nsation of left eye droopage. Patient notes that she took Ibuprofen without relief. Patient denies tearing, drooling, nausea, or vomiting. Patient reports a past medical history of lupus, but denies history of migraines. TRAVEL OUTSIDE OF THE [place] IN LAST 30 DAYS: No - Related Data Allergies/Adverse Reactions: colgate toothpaste Allergy (Severe, Uncoded 12/18/17 09:03) crest toothpaste Allergy (Severe, Uncoded 12/18/17 09:03) FORMS HOLES IN TONGUE AND MOUTH Past Medical History - General Information source: Patient - Social History Smoking Status: Never Smoker Cigarette use (# per day): No Chew tobacco use (# tins/day): No Smoking Education Provided: No Frequency of alcohol use: None Drug Abuse: None Family History: Reviewed & Not Pertinent, Arthritis, CAD, CVA, Hyperlipidemia, Hypertension, Malignancy, Thyroid Disfunction Patient has suicidal ideation: No Patient has homicidal ideation: No - Past Medical History Cardiac Medical History: Reports: Hx Heart Murmur Pulmonary Medical History: Reports: Hx Bronchitis, Hx Pneumonia Musculoskeletal Medical History: Reports Hx Musculoskeletal Trauma Psychiatric Medical History: Reports: Hx Anxiety, Hx Depression Traumatic Medical History: Reports: Hx Fractures - Left index finger Past Surgical History: Reports: Hx Cholecystectomy - Immunizations Hx Diphtheria, Pertussis, Tetanus Vaccination: Yes Review of Systems - Review of Systems Constitutional: No symptoms reported EENT: See HPI, Other - Sensation of left eye droop. denies: Tearing Cardiovascular: No symptoms reported Respiratory: No symptoms reported Gastrointestinal: See HPI. denies: Nausea, Vomiting Genitourinary: No symptoms reported Female Genitourinary: No symptoms reported Musculoskeletal: No symptoms reported Skin: No symptoms reported Hematologic/Lymphatic: No symptoms reported Neurological/Psychological: See HPI, Headaches - "jolt of electricity", Numbness - Left-sided facial numbness -: Yes All other systems reviewed and negative Physical Exam - Vital signs Vitals: Temp Pulse Resp BP Pulse Ox 98.0 F 79 16 101/57 L 99 12/15/19 01:51 12/15/19 01:51 12/15/19 01:51 12/15/19 01:51 12/15/19 01:51 - General General appearance: Appears well, Alert In distress: None - HEENT Head: Normocephalic, Atraumatic Eyes: Normal Pupils: PERRL - Respiratory Respiratory status: No respiratory distress Chest status: Nontender Breath sounds: Normal Chest palpation: Normal - Cardiovascular Rhythm: Regular Heart sounds: Normal auscultation Murmur: No Friction rub: No Gallop: None auscultated - Abdominal Inspection: Normal Distension: No distension Bowel sounds: Normal Tenderness: Nontender - Abdomen soft Organomegaly: No organomegaly - Back Back: Normal, Nontender - Extremities General upper extremity: Normal inspection General lower extremity: Normal inspection - Neurological Neuro grossly intact: Yes - Psychological Associated symptoms: Normal affect, Normal mood - Skin Skin Temperature: Warm Skin Moisture: Dry Skin Color: Normal Course - Re-evaluation Re-evalutation: 12/15/19 05:56 Patient states she is feeling better at this time. All questions were answered prior to discharge. Emergency signs and symptoms, reasons to return to the emergency department discussed with patient. - Vital Signs Vital signs: Temp Pulse Resp BP Pulse Ox 98.0 F 79 16 101/57 L 99 12/15/19 01:51 12/15/19 01:51 12/15/19 01:51 12/15/19 01:51 12/15/19 01:51 - Laboratory Result Diagrams: 12/15/19 02:10 12/15/19 02:10 Discharge - Discharge Clinical Impression: Acute headache Qualifiers: Headache type: unspecified Intractability: not intractable Qualified Code(s): R51 - Headache Condition: Good Disposition: HOME, SELF-CARE Additional Instructions: Return to the Emergency Department without delay if any worse. HOME CARE INSTRUCTIONS & INFORMATION: Thank you for choosing us for your medical needs. We hope you're satisfied with the care you received. After you leave, you must properly care for your problem and, at the same time, observe its progress. Any condition can change. Some illnesses can change rapidly over hours or days. If your condition worsens, return to the Emergency Department or see your physician promptly. ABOUT YOUR X-RAYS AND EKG'S: If you had an EKG or X-rays taken, they have been read by the Emergency Physician. The X-rays and EKG's will also be read by a Radiologist or Band Booker within 24 hours. If discrepancies are noted, you will be notified by telephone. Please be certain the ED has a correct telephone number & address where you can be reached. Also, realize that some fractures or abnormalities do not show up on initial X-rays. If your symptoms continue, see your physician. ABOUT YOUR LABORATORY TEST: If you had laboratory tests, the results have been reviewed by the Emergency Physician. Some test results (for example cultures) may not be available for several days. You will be contacted if any test result shows you need additional treatment. Please be certain the ED has a correct telephone number and address where you can be reached. ABOUT YOUR MEDICATIONS: You will receive instructions on how to take your medicine on the prescription label you receive. Additional information may be provided by the Pharmacy. If you have questions afterwards, call the ED for clarification or further instructions. Some prescribed medications may cause drowsiness. Do not perform tasks such as driving a car or operating machinery without consulting your Pharmacist. If you feel you need a refill of pain medication, your condition will need re-evaluation. Please do not call for a refill of any medication. ABOUT YOUR SIGNATURE: Signature of this document acknowledges to followin. Understanding that you received emergency treatment and that you may be released before al medical problems are known or treated. Please be certain the ED has a correct phone number & address where you can be reached. 2. Acknowledgement that you will arrange for follow-up care as recommended. 3. Authorization for the Emergency Physician to provide information to your follow-up Physician in order to maximize your care. AT ANY TIME, IF YOUR SYMPTOMS CHANGE SIGNIFICANTLY OR WORSEN OR YOU DEVELOP NEW SYMPTOMS, RETURN TO THE EMERGENCY DEPARTMENT IMMEDIATELY FOR RE-EVALUATION. OUR GOAL IS TO PROVIDE EXCELLENT MEDICAL CARE! WE HOPE THAT WE HAVE MET YOUR EXPECTATIONS DURING YOUR EMERGENCY DEPARTMENT VISIT AND THAT YOU FEEL YOU HAVE RECEIVED EXCELLENT CARE! Headache The physician does not feel that the headache you are experiencing has a serious underlying cause. Most headaches are due to emotional stress, with resultant muscle tension (tension headache). Occasionally, headaches are secondary to changes in the blood vessels of the scalp (vascular headache and migraine headache). Sometimes, a headache is the first symptom of another developing illness, such as a viral infection. You have no evidence of stroke, bleeding, meningitis, or other serious cause of your headache. The treatment of headaches varies with the severity and cause of the pain. Not all headaches need pain shots. In fact, there is evidence that using narcotics for headaches may make them worse in the long run. The physician will determine the therapy that's in your best interest. If you develop a fever, if the headache is different from any you've previously experienced, or if the headache progressively worsens, then call your physician at once or go to the emergency room. Forms: Return to Work Referrals: IRMA LAL PA [Primary Care Provider] - Follow up as needed I personally performed the services described in the documentation, reviewed and edited the documentation which was dictated to the scribe in my presence, and it accurately records my words and actions.
[2019-12-15 06:36] VITALS: BP 105/85
== END 2019-12-15 06:28 | disposition home or self-care (01) ==
LOC: ER 01:46
DX: R51 Headache (principal); R20.0 Anesthesia of skin; Z91.048 Other nonmedicinal substance allergy status
CPT/HCPCS: 99284; 96361; 96374; 96375; 36415; 85025; 80053; J2930; J1885; J7030